=== PATIENT | female | born 1975 | race Caucasian/White ===

== ENCOUNTER 2017-07-28 19:18 | Emergency (ER) | payer BC ==
[2017-07-28] MEDS ORDERED: ONDANSETRON 4 MG/2 ML VIAL ONE (20:22)
[2017-07-28] MEDS ORDERED: NA CHLORIDE 0.9% 500 ML ONE (20:22)
[2017-07-28 20:39] LABS: Absolute Lymphocytes (CBC) 2.5 K/uL (0.7-4.9); Absolute Monocytes 1.3 K/uL (0.1-1.3); Basophils % 0.9 % (0-1.3); Eosinophils % 2.3 % (0-4.4); Hematocrit 39.3 % (36.0-45.0); Lymphocytes % 22.7 % (15.3-44.8); MCH 30.2 pg (27.0-35.0); MPV 9.3 fL (7.6-11.3); Monocytes % 11.6 % (3.3-12.3); RBC Red Blood Cell Count 4.41 M/uL (3.86-4.86)
[2017-07-28] MEDS ORDERED: PROMETHAZINE 25 MG/ML VIAL ONE (20:46)
[2017-07-28 20:57] LABS: Bicarbonate 28 mEq/L (21-31); Glucose Level 90 mg/dL (65-120); Lipase 35 U/L (22-51); Sodium Level 136 mEq/L (135-145)
[2017-07-28 21:00] LABS: ALT/SGPT 21 IU/L (10-60); AST/SGOT 18 IU/L (10-42); Albumin 4.1 g/dL (3.2-5.5); BUN Blood Urea Nitrogen 14 mg/dL (6-20); Bilirubin Total 0.4 mg/dL (0.3-1.2); Protein, Total 7.1 g/dL (6.0-8.3)
[2017-07-28 21:03] LABS: Alkaline Phosphatase 62 IU/L (42-121); Bilirubin Direct 0.1 mg/dL (0-0.2)
[2017-07-28 21:19] LABS: Urine Blood TRACE (NEG); Urine Glucose NEGATIVE (NEG); Urine Protein NEGATIVE (NEG); Urine Specific Gravity >1.030 (1.005-1.030); Urine pH 5.5 (5.0-7.0)
[2017-07-28 21:22] LABS: Urine Bacteria 20-50 /HPF (<20); Urine Culture Reflex Order REFLEXED; Urine RBC <5 /HPF (NONE SEEN)
[2017-07-29 00:09] LABS: Barbiturates NEGATIVE (NEGATIVE); Benzodiazepines NEGATIVE (NEGATIVE); Cocaine NEGATIVE (NEGATIVE); METHAMPHETAM NEGATIVE (NEGATIVE); Opiates NEGATIVE (NEGATIVE); Phencyclidine NEGATIVE (NEGATIVE); THC Cannibis NEGATIVE (NEGATIVE)
--- NOTE | 2017-07-29 00:18 | ER ---
Nurse's Notes [facility] Name: Jazzmine Amin Age: 41 yrs Sex: Female : 1975 Arrival Date: 07/28/2017 Time: 19:20 Bed 26 Private MD: Elba Pascual K Diagnosis: Viral Gastroenteritis Presentation: 07/28 19:48 Presenting complaint: Patient states: that she is having right lower abd pain that fc radiates around to back. Positive for nausea, vomiting and diarrhea. Started 1 week ago. Transition of care: patient was not received from another setting of care. Onset of symptoms was July 20, 2017. Risk Assessment: Do you want to hurt yourself or someone else? Patient reports no desire to harm self or others. Initial Sepsis Screen: Does the patient meet any 2 criteria? No. Patient's initial sepsis screen is negative. Does the patient have a suspected source of infection? No. Patient's initial sepsis screen is negative. Care prior to arrival: Medication(s) given: Pepto last at 1700. 19:48 Method Of Arrival: Ambulatory 19:48 Acuity: SANTO 3 Triage Assessment: 19:52 General: Appears uncomfortable, obese, Behavior is calm, cooperative, appropriate for age. Pain: Complains of pain in right lower quadrant Pain currently is 8 out of 10 on a pain scale. Quality of pain is described as aching, crampy, sharp, stabbing, Pain began 1 week ago Is continuous, Aggravated by eating, drinking. EENT: No deficits noted. Neuro: Level of Consciousness is awake, alert, obeys commands, Oriented to person, place, time, situation. Cardiovascular: No deficits noted. Respiratory: No deficits noted. GI: Reports lower abdominal pain, cramping, diarrhea, nausea, vomiting. : No deficits noted. Derm: Skin is pink, warm \T\ dry. Musculoskeletal: Circulation, motion, and sensation intact. Capillary refill < 3 seconds, Range of motion: intact in all extremities. 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 - Social history:: Smoking status: Patient uses tobacco products, smokes one pack cigarettes per day. Patient uses alcohol, occasionally. Patient/guardian denies using street drugs. - Ebola Screening: : Patient negative for fever greater than or equal to 101.5 degrees Fahrenheit, and additional compatible Ebola Virus Disease symptoms Patient denies exposure to infectious person Patient denies travel to an Ebola-affected area in the 21 days before illness onset. - Family history:: not pertinent. - Hospitalizations: : No recent hospitalization is reported. Screenin:08 Abuse screen: Denies threats or abuse. Nutritional screening: No deficits noted. jd3 Tuberculosis screening: No symptoms or risk factors identified. Fall Risk Ambulatory Aid- None/Bed Rest/Nurse Assist (0 pts). Gait- Normal/Bed Rest/Wheelchair (0 pts) Mental Status- Oriented to own ability (0 pts). Total Ziegler Fall Scale indicates No Risk (0-24 pts). Assessment: 20:04 General: Appears uncomfortable, Behavior is calm, cooperative, appropriate for age. jd3 Pain: Complains of pain in abdomen Pain radiates to posterior aspect of right lateral abdomen and anterior aspect of right lateral abdomen Pain currently is 8 out of 10 on a pain scale. Quality of pain is described as aching, sharp, Also complains of nausea. Neuro: Level of Consciousness is awake, alert, obeys commands, Oriented to person, place, time, situation. Cardiovascular: Heart tones S1 S2 present Capillary refill < 3 seconds Patient's skin is warm and dry. Respiratory: Airway is patent Respiratory effort is even, unlabored, Respiratory pattern is regular, symmetrical, Breath sounds are clear bilaterally. GI: Abdomen is round Bowel sounds present X 4 quads. Abd is soft Abdomen is tender to palpation X 4 quads. Reports diarrhea, nausea, vomiting. : No signs and/or symptoms were reported regarding the genitourinary system. EENT: No signs and/or symptoms were reported regarding the EENT system. Derm: Skin is intact, Skin is dry, Skin is normal, Skin temperature is warm. Musculoskeletal: Circulation, motion, and sensation intact. Range of motion: intact in all extremities. 21:28 Reassessment: Patient appears in no apparent distress at this time. Patient and/or jd3 family updated on plan of care and expected duration. Pain level reassessed. Patient is alert, oriented x 3, equal unlabored respirations, skin warm/dry/pink. 23:13 Reassessment: Patient appears in no apparent distress at this time. No changes from tl3 previously documented assessment. Patient and/or family updated on plan of care and expected duration. Pain level reassessed. Patient is alert, oriented x 3, equal unlabored respirations, skin warm/dry/pink. pt returned from CT, sleeping heavily but arrousable. 07/29 00:04 Reassessment: Patient appears in no apparent distress at this time. No changes from tl3 previously documented assessment. Patient and/or family updated on plan of care and expected duration. Pain level reassessed. Patient is alert, oriented x 3, equal unlabored respirations, skin warm/dry/pink. pt roused to give urine sample, ambulated to . Vital Signs: 07/28 19:54 BP 117 / 85; Pulse 89; Resp 20; Temp 98.9(O); Pulse Ox 97% on R/A; Weight 98.43 kg (R); Height 5 ft. 4 in. (162.56 cm) (R); Pain 8/10; 20:15 BP 113 / 78; Pulse 87; Resp 16 S; Pulse Ox 100% on R/A; jd3 21:27 BP 136 / 87; Pulse 83; Resp 17; Pulse Ox 98% on R/A; jd3 23:13 BP 107 / 74; Pulse 70; Resp 18; Pulse Ox 98% ; tl3 07/29 00:04 BP 112 / 76; Pulse 74; Resp 16; Pulse Ox 98% ; tl3 07/28 19:54 Body Mass Index 37.25 (98.43 kg, 162.56 cm) ED Course: 07/28 19:20 Patient arrived in ED. am2 19:20 Elba Pascual MD is Private Physician. am2 19:50 Triage completed. 19:52 Arm band placed on Patient placed in an exam room, on a stretcher. 20:04 Ernie Tovar RN is Primary Nurse. jd3 20:06 Edmond Phan MD is Attending Physician. rn 20:09 Patient has correct armband on for positive identification. Bed in low position. Call jd3 light in reach. Side rails up X 1. Adult w/ patient. 20:25 Inserted saline lock: 20 gauge in right antecubital area, using aseptic technique. jd3 Blood collected. 20:32 Oral contrast given. 21:01 Oral contrast reported to be complete. 22:[address] via wheelchair. 23:01 CT Abd/Pelvis - W/Contrast In Process Unspecified. EDMS 23:13 No provider procedures requiring assistance completed. tl3 23:34 Urine Dipstick--Ancillary (enter results) Sent. tl3 23:48 Urine Drug Screen Sent. tl3 Administered Medications: 20:26 Drug: NS 0.9% 500 ml Route: IV; Rate: bolus; Site: right antecubital; Delivery: Primary tl3 tubing; 20:27 Drug: Zofran 4 mg Route: IVP; Infused Over: 2 mins; Site: right antecubital; tl3 20:47 Drug: Phenergan 25 mg Route: IVP; Site: right antecubital; jd3 23:12 Follow up: Response: No adverse reaction tl3 Outcome: 07/29 00:17 Discharge ordered by . rn 00:47 Patient left the ED. tl3 Signatures: Dispatcher [employer] EDWI Leana Feldman RN RN fc Nieto, Roman, MD MD rn Warren, Shannon Mila [facility] Ernie Tovar RN RN jd3 Lowrey, Tammy, RN RN tl3
--- NOTE | 2017-07-29 00:18 | EDPHYS ---
Physician Documentation [facility] Name: Jazzmine Amin Age: 41 yrs Sex: Female : 1975 Arrival Date: 07/28/2017 Time: 19:20 Bed 26 Private MD: Elba Pascual K ED Physician Edmond Phan HPI: 07/28 21:26 This 41 yrs old Female presents to ER via Ambulatory with complaints of rn Abdominal Pain, Vomiting/Diarrhea. 21:26 The patient presents to the emergency department with nausea, vomiting, diarrhea, rn abdominal pain. Onset: The symptoms/episode began/occurred 1 week(s) ago. Possible causes: unknown. Associated signs and symptoms: Pertinent positives: abdominal pain, diarrhea, nausea, vomiting, Pertinent negatives: GI bleeding. Severity of symptoms: At their worst the symptoms were moderate in the emergency department the symptoms are unchanged. The patient has experienced a previous episode. The patient has not recently seen a physician. 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 - Social history:: Smoking status: Patient uses tobacco products, smokes one pack cigarettes per day. Patient uses alcohol, occasionally. Patient/guardian denies using street drugs. - Ebola Screening: : Patient negative for fever greater than or equal to 101.5 degrees Fahrenheit, and additional compatible Ebola Virus Disease symptoms Patient denies exposure to infectious person Patient denies travel to an Ebola-affected area in the 21 days before illness onset. - Family history:: not pertinent. - Hospitalizations: : No recent hospitalization is reported. ROS: 21:26 Constitutional: Negative for fever, chills, and weight loss, Eyes: Negative for injury, rn pain, redness, and discharge, Cardiovascular: Negative for chest pain, palpitations, and edema, Respiratory: Negative for shortness of breath, cough, wheezing, and pleuritic chest pain, Abdomen/GI: + abd pain/nausea/vomiting/diarrhea Back: Negative for injury and pain, MS/Extremity: Negative for injury and deformity, Skin: Negative for injury, rash, and discoloration, Neuro: Negative for headache, weakness, numbness, tingling, and seizure. Exam: 21:26 Constitutional: This is a well developed, well nourished patient who is awake, alert, rn and in no acute distress. Head/Face: Normocephalic, atraumatic. Eyes: Pupils equal round and reactive to light, extra-ocular motions intact. Lids and lashes normal. Conjunctiva and sclera are non-icteric and not injected. Cornea within normal limits. Periorbital areas with no swelling, redness, or edema. Respiratory: Normal respiratory effort Abdomen/GI: soft, mild RLQ and periumbilical tenderness, no rebound Skin: Warm, dry with normal turgor. Normal color with no rashes, no lesions, and no evidence of cellulitis. MS/ Extremity: Pulses equal, no cyanosis. Neurovascular intact. Full, normal range of motion. Equal circumference. Neuro: Awake and alert, GCS 15, oriented to person, place, time, and situation. Motor strength 5/5 in all extremities. Sensory grossly intact. Vital Signs: 19:54 BP 117 / 85; Pulse 89; Resp 20; Temp 98.9(O); Pulse Ox 97% on R/A; Weight 98.43 kg (R); fc Height 5 ft. 4 in. (162.56 cm) (R); Pain 8/10; 20:15 BP 113 / 78; Pulse 87; Resp 16 S; Pulse Ox 100% on R/A; jd3 21:27 BP 136 / 87; Pulse 83; Resp 17; Pulse Ox 98% on R/A; jd3 23:13 BP 107 / 74; Pulse 70; Resp 18; Pulse Ox 98% ; tl3 07/29 00:04 BP 112 / 76; Pulse 74; Resp 16; Pulse Ox 98% ; tl3 07/28 19:54 Body Mass Index 37.25 (98.43 kg, 162.56 cm) fc MDM: 07/28 20:06 Patient medically screened. rn 07/29 00:17 Differential diagnosis: Nonspecific abd pain, gastritis, pancreatitis, viral rn gastroenteritis, gastroenteritis. Data reviewed: vital signs, nurses notes, lab test result(s), radiologic studies, CT scan, and as a result, I will discharge patient. Counseling: I had a detailed discussion with the patient and/or guardian regarding: the historical points, exam findings, and any diagnostic results supporting the discharge/admit diagnosis, lab results, radiology results, the need for outpatient follow up, to return to the emergency department if symptoms worsen or persist or if there are any questions or concerns that arise at home. Response to treatment: the patient's symptoms have markedly improved after treatment, and as a result, I will discharge patient. Special discussion: Based on the patient's Hx, exam, and Dx evaluation, there is no indication for emergent surgery or inpatient Tx. It is understood by the patient/guardian that if the Sx's persist or worsen they need to return immediately for re-evaluation. I discussed with the patient/guardian in detail that at this point there is no indication for admission to the hospital. It is understood, however, that if the symptoms persist or worsen the patient needs to return immediately for re-evaluation. 07/28 20:15 Order name: Basic Metabolic Panel; Complete Time: 21:15 07/28 20:15 Order name: CBC with Diff; Complete Time: 21:15 07/28 20:15 Order name: Hepatic Function; Complete Time: 21:15 07/28 20:15 Order name: Lipase; Complete Time: 21:15 07/28 20:15 Order name: Urine Microscopic Only; Complete Time: 23:02 07/28 20:41 Order name: Urine Dipstick--Ancillary (enter results) [facility] 07/28 20:15 Order name: CT Abd/Pelvis - W/Contrast 07/28 20:41 Order name: Urine --Ancillary (enter results); Complete Time: 23:02 [facility] 07/28 20:41 Order name: Urine Dipstick-Ancillary; Complete Time: 23:02 [facility] 07/28 21:24 Order name: Urine Culture [facility] 07/28 23:02 Order name: Urine Drug Screen 07/28 23:03 Order name: Urine Drug Screen; Complete Time: 00:16 [facility] 07/28 20:15 Order name: Urine Test (obtain specimen); Complete Time: 20:41 07/28 20:15 Order name: IV Saline Lock; Complete Time: 20:29 rn 07/28 20:15 Order name: Labs collected and sent; Complete Time: 20:29 rn 07/28 20:15 Order name: Urine Dipstick-Ancillary (obtain specimen); Complete Time: 20:41 rn Administered Medications: 07/28 20:26 Drug: NS 0.9% 500 ml Route: IV; Rate: bolus; Site: right antecubital; Delivery: Primary tl3 tubing; 20:27 Drug: Zofran 4 mg Route: IVP; Infused Over: 2 mins; Site: right antecubital; tl3 20:47 Drug: Phenergan 25 mg Route: IVP; Site: right antecubital; jd3 23:12 Follow up: Response: No adverse reaction tl3 Disposition: 07/29/17 00:17 Discharged to Home. Impression: Viral Gastroenteritis. - Condition is Stable. - Discharge Instructions: Viral Gastroenteritis. - Prescriptions for Zofran ODT 4 mg Oral tablet,disintegrating - place 1 tablet by TRANSLINGUAL route every 8-10 hours As needed; 20 tablet. - Medication Reconciliation Form, Thank You Letter, Antibiotic Education, Prescription Opioid Use form. - Follow up: Private Physician; When: As needed; Reason: Recheck today's complaints, Re-evaluation by your physician. - Problem is new. - Symptoms have improved. Signatures: Dispatcher [employer] EDMS Leana Feldman RN RN fc Nieto, Roman, MD MD rn Davies, Jonathon, RN RN jd3 Lowrey, Tammy, RN RN tl3 Corrections: (The following items were deleted from the chart) 07/29 00:47 00:17 07/29/2017 00:17 Discharged to Home. Impression: Viral Gastroenteritis. Condition tl3 is Stable. Forms are Medication Reconciliation Form, Thank You Letter, Antibiotic Education, Prescription Opioid Use. Follow up: Private Physician; When: As needed; Reason: Recheck today's complaints, Re-evaluation by your physician. Problem is new. Symptoms have improved. rn
[2017-07-29 01:34] VITALS: TEMP 98.9
[2017-07-29 01:43] VITALS: O2SAT 98
[2017-07-29 01:55] VITALS: BP 112/76
--- NOTE | 2017-07-29 10:44 | RAD REPORT ---
EXAM DESCRIPTION: CTAbdomen Pelvis W Contrast - 07/29/2017 4:22 am CLINICAL HISTORY: Abdominal pain. COMPARISON: 10/30/2015, 09/30/2008 TECHNIQUE: Biphasic CT imaging of the abdomen and pelvis was performed with 100 ml non-ionic IV cont rast. All CT scans are performed using dose optimization technique as appropriate and may include automated exposure control or mA/KV adjustment according to patient size. FINDINGS: The lung bases are clear. The liver, spleen, pancreas, adrenal glands and kidneys are within normal limits. No bowel obstruction, free air, free fluid or abscess. The appendix is normal. No evidence of signi ficant lymphadenopathy. No suspicious bony findings. IMPRESSION: No acute intra-abdominal or pelvic finding.
== END 2017-07-29 00:47 | disposition home or self-care (01) ==
LOC: ER 19:18
DX: A08.4 Viral intestinal infection, unspecified (principal); F90.9 Attention-deficit hyperactivity disorder, unspecified type; F17.210 Nicotine dependence, cigarettes, uncomplicated
CPT/HCPCS: 36415; 74177; 80048; 80076; 80307; 81003; 81015; 81025; 83690; 85025; 87086; 87088; 96374; 96375; 99284; J2405; J2550; Q9967

== ENCOUNTER 2017-12-05 19:44 | Emergency (ER) | payer BC ==
[2017-12-05] MEDS ORDERED: LIDOCAINE 1% W/EPI 1:100,000 MDV 50 ML VIAL ONE (20:37)
[2017-12-05] MEDS ORDERED: SMZ./TMP. 800/160 MG TABLET ONE (20:48)
[2017-12-05] MEDS ORDERED: DOXYCYCLINE 100 MG CAP PO ONE (20:48)
--- NOTE | 2017-12-05 21:26 | EDPHYS ---
Physician Documentation [facility] Name: Jazzmine Amin Age: 42 yrs Sex: Female : 1975 Arrival Date: 12/05/2017 Time: 19:47 Bed 18 Private MD: Elba Pascual K ED Physician Otilio Wade HPI: 12/05 20:27 This 42 yrs old Female presents to ER via Ambulatory with complaints of KNEE maksim SWOLLEN,ANKLE PAIN. 20:27 The patient presents with pain, swelling, tenderness. The complaints affect the left maksim knee. Context: The problem was sustained at an unknown site, resulted from an unknown cause. Onset: The symptoms/episode began/occurred 3 day(s) ago. Modifying factors: The symptoms are alleviated by remaining still, the symptoms are aggravated by movement, bending knee. Associated signs and symptoms: The patient has no apparent associated signs or symptoms. Severity of symptoms: At their worst the symptoms were mild, moderate, in the emergency department the symptoms are unchanged. The patient has not experienced similar symptoms in the past. 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 - Social history:: Smoking status: Patient uses tobacco products, smokes one-half pack cigarettes per day, Patient/guardian denies using alcohol, street drugs. - Ebola Screening: : No symptoms or risks identified at this time. - Family history:: not pertinent. ROS: 20:27 Constitutional: Negative for fever, chills, and weight loss, Eyes: Negative for injury, maksim pain, redness, and discharge, ENT: Negative for injury, pain, and discharge, Neck: Negative for injury, pain, and swelling, Cardiovascular: Negative for chest pain, palpitations, and edema, Respiratory: Negative for shortness of breath, cough, wheezing, and pleuritic chest pain, Abdomen/GI: Negative for abdominal pain, nausea, vomiting, diarrhea, and constipation, Back: Negative for injury and pain, : Negative for injury, bleeding, discharge, and swelling, Neuro: Negative for headache, weakness, numbness, tingling, and seizure, Psych: Negative for depression, anxiety, suicide ideation, homicidal ideation, and hallucinations, Allergy/Immunology: Negative for hives, rash, and allergies, Endocrine: Negative for neck swelling, polydipsia, polyuria, polyphagia, and marked weight changes, Hematologic/Lymphatic: Negative for swollen nodes, abnormal bleeding, and unusual bruising. 20:27 MS/extremity: Positive for decreased range of motion, pain, swelling, tenderness, of the left knee. Exam: 20:27 Constitutional: This is a well developed, well nourished patient who is awake, alert, maksim and in no acute distress. Head/Face: Normocephalic, atraumatic. Eyes: Pupils equal round and reactive to light, extra-ocular motions intact. Lids and lashes normal. Conjunctiva and sclera are non-icteric and not injected. Cornea within normal limits. Periorbital areas with no swelling, redness, or edema. ENT: Nares patent. No nasal discharge, no septal abnormalities noted. Tympanic membranes are normal and external auditory canals are clear. Oropharynx with no redness, swelling, or masses, exudates, or evidence of obstruction, uvula midline. Mucous membranes moist. Neck: Trachea midline, no thyromegaly or masses palpated, and no cervical lymphadenopathy. Supple, full range of motion without nuchal rigidity, or vertebral point tenderness. No Meningismus. Chest/axilla: Normal chest wall appearance and motion. Nontender with no deformity. No lesions are appreciated. Cardiovascular: Regular rate and rhythm with a normal S1 and S2. No gallops, murmurs, or rubs. Normal PMI, no JVD. No pulse deficits. Respiratory: Lungs have equal breath sounds bilaterally, clear to auscultation and percussion. No rales, rhonchi or wheezes noted. No increased work of breathing, no retractions or nasal flaring. Abdomen/GI: Soft, non-tender, with normal bowel sounds. No distension or tympany. No guarding or rebound. No evidence of tenderness throughout. Back: No spinal tenderness. No costovertebral tenderness. Full range of motion. Female : Normal external genitalia. Neuro: Awake and alert, GCS 15, oriented to person, place, time, and situation. Cranial nerves II-XII grossly intact. Motor strength 5/5 in all extremities. Sensory grossly intact. Cerebellar exam normal. Normal gait. Psych: Awake, alert, with orientation to person, place and time. Behavior, mood, and affect are within normal limits. 20:27 Musculoskeletal/extremity: ROM: no acute changes, Circulation is intact in all extremities. DVT Exam: No signs of deep vein thrombosis. negative Homans' sign noted on exam, no appreciated bluish discoloration, no erythema, no increased warmth, pain, swelling, tenderness, local to the left patellar insertion site. Vital Signs: 20:24 BP 135 / 78; Pulse 88; Resp 18 S; Temp 98.2(O); Pulse Ox 96% on R/A; Weight 108.86 kg bb (R); Height 5 ft. 4 in. (162.56 cm) (R); Pain 8/10; 21:15 BP 128 / 87; Pulse 78; Resp 16; Pulse Ox 96% on R/A; jb4 20:24 Body Mass Index 41.20 (108.86 kg, 162.56 cm) bb Procedures: 21:23 I \T\ D: Incision and drainage was performed for an abscess of the left Prepped with [facility] Betadine, Anesthetized with 6 ml's 1% Lidocaine w/ Epi. Incised with #11 blade. Drained moderate amount serosanguinous fluid. synovial fluid, thick, slightly purlent Packed with iodoform gauze, Dressing: sterile 4x4 gauze, non-Adherent dressing, the patient tolerated the procedure well. MDM: 20:13 Patient medically screened. [facility] 20:27 Data reviewed: vital signs, nurses notes, lab test result(s), radiologic studies. [facility] 12/05 20: Order name: Wound Culture [facility] 12/05 20: Order name: Knee Left 3 View XRAY [facility] 12/05 20:27 Order name: Dressing - Wound; Complete Time: 20:32 [facility] 12/05 20: Order name: Gloves, Sterile; Complete Time: 20:32 [facility] 12/05 20:27 Order name: Setup Suture Tray; Complete Time: 20:32 [facility] 12/05 20: Order name: Crutches; Complete Time: 21:00 [facility] 12/05 21:26 Order name: Wound dressing; Complete Time: 21:56 [facility] Administered Medications: 20:51 Drug: Bactrim (160 mg-800 mg (DS) 1 tablet Route: PO; jb4 21:15 Follow up: Response: No adverse reaction jb4 20:51 Drug: Doxycycline 200 mg Route: PO; jb4 21:15 Follow up: Response: No adverse reaction jb4 21:00 Drug: Lidocaine-Epinephrine -1%: (1:100,000) 10 ml Volume: 20 ml; Route: Infiltration; jb4 21:15 Follow up: Response: No adverse reaction jb4 21:55 Drug: [place] 10 mg-325 mg 1 tabs Route: PO; jb4 22:15 Follow up: Response: No adverse reaction; Pain is decreased jb4 Disposition: 12/05/17 21:26 Discharged to Home. Impression: Cutaneous abscess of limb, Other bursitis of knee, left knee - early suppurative. - Condition is Stable. - Discharge Instructions: Skin Abscess, Incision and Drainage, Skin Abscess, Fcba-in-Hloa, Incision Care, Adult, Incision Care, [id number]. - Prescriptions for Tylenol- Codeine #3 300-30 mg Oral Tablet - take 2 tablets by ORAL route every 6 hours As needed; 24 tablet. Doxycycline Hyclate 100 mg Oral Tablet - take 1 tablet by ORAL route every 12 hours; 20 tablet. Bactrim DS 800- 160 mg Oral Tablet - take 1 tablet by ORAL route every 12 hours for 10 days; 20 tablet. - Medication Reconciliation Form, Thank You Letter, Antibiotic Education, Prescription Opioid Use, Work release form form. - Follow up: Elba Pascual; When: 2 - 3 days; Reason: Recheck today's complaints, Continuance of care, Re-evaluation by your physician. Follow up: Jenaro Berkowitz; When: 2 - 3 days; Reason: Recheck today's complaints, Re-evaluation by your physician. - Problem is new. - Symptoms have improved. Signatures: Dispatcher [employer] Otilio De Anda MD MD cha Ballard, Brenda, MARBELLA RN Remigio Whaley RN RN jb4 Corrections: (The following items were deleted from the chart) 21:56 21:26 12/05/2017 21:26 Discharged to Home. Impression: Cutaneous abscess of limb; Other jb4 bursitis of knee, left knee - early suppurative. Condition is Stable. Discharge Instructions: Skin Abscess, Incision and Drainage, Skin Abscess, [id number], Incision Care, Adult, Incision Care, [id number]. Prescriptions for Tylenol-Codeine #3 300-30 mg Oral Tablet - take 2 tablets by ORAL route every 6 hours As needed; 24 tablet, Doxycycline Hyclate 100 mg Oral Tablet - take 1 tablet by ORAL route every 12 hours; 20 tablet, Bactrim DS 800-160 mg Oral Tablet - take 1 tablet by ORAL route every 12 hours for 10 days; 20 tablet. and Forms are Medication Reconciliation Form, Thank You Letter, Antibiotic Education, Prescription Opioid Use. Follow up: Elba Pascual; When: 2 - 3 days; Reason: Recheck today's complaints, Continuance of care, Re-evaluation by your physician. Follow up: Jenaro Berkowitz; When: 2 - 3 days; Reason: Recheck today's complaints, Re-evaluation by your physician. Problem is new. Symptoms have improved. maksim
--- NOTE | 2017-12-05 21:26 | ER ---
Nurse's Notes [facility] Name: Jazzmine Amin Age: 42 yrs Sex: Female : 1975 Arrival Date: 12/05/2017 Time: 19:47 Bed 18 Private MD: Elba Pascual K Diagnosis: Cutaneous abscess of limb;Other bursitis of knee, left knee-early suppurative Presentation: 12/05 20:22 Presenting complaint: Patient states: she is having left knee pain x 1 week denies bb trauma states pain is getting worse and it is getting more swollen. Transition of care: patient was not received from another setting of care. Onset of symptoms was November 28, 2017. Risk Assessment: Do you want to hurt yourself or someone else? Patient reports no desire to harm self or others. Initial Sepsis Screen: Does the patient meet any 2 criteria? No. Patient's initial sepsis screen is negative. Does the patient have a suspected source of infection? No. Patient's initial sepsis screen is negative. Care prior to arrival: None. 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 - Social history:: Smoking status: Patient uses tobacco products, smokes one-half pack cigarettes per day, Patient/guardian denies using alcohol, street drugs. - Ebola Screening: : No symptoms or risks identified at this time. - Family history:: not pertinent. Screenin:20 Abuse screen: Denies threats or abuse. Nutritional screening: No deficits noted. jb4 Tuberculosis screening: No symptoms or risk factors identified. Fall Risk None identified. Assessment: 20:20 General: Appears in no apparent distress. uncomfortable, Behavior is calm, cooperative. jb4 Pain: Complains of pain in left hoyos Pain radiates to the left ankle. Pain currently is 10 out of 10 on a pain scale. Quality of pain is described as sharp, Pain began 1 day ago. Is continuous. Neuro: Level of Consciousness is awake, alert, obeys commands, Oriented to person, place, time, situation. Cardiovascular: Patient's skin is warm and dry. Respiratory: Airway is patent Respiratory effort is even, unlabored, Respiratory pattern is regular, symmetrical. GI: No signs and/or symptoms were reported involving the gastrointestinal system. : No signs and/or symptoms were reported regarding the genitourinary system. EENT: No signs and/or symptoms were reported regarding the EENT system. Derm: Skin is intact, Skin is pink, warm \T\ dry. Abscess located on left hoyos is golf ball sized, has no drainage, is raised. Musculoskeletal: Circulation, motion, and sensation intact. 21:15 Reassessment: Patient appears in no apparent distress at this time. Patient and/or jb4 family updated on plan of care and expected duration. Pain level reassessed. Patient is alert, oriented x 3, equal unlabored respirations, skin warm/dry/pink. Vital Signs: 20:24 BP 135 / 78; Pulse 88; Resp 18 S; Temp 98.2(O); Pulse Ox 96% on R/A; Weight 108.86 kg bb (R); Height 5 ft. 4 in. (162.56 cm) (R); Pain 8/10; 21:15 BP 128 / 87; Pulse 78; Resp 16; Pulse Ox 96% on R/A; jb4 20:24 Body Mass Index 41.20 (108.86 kg, 162.56 cm) ED Course: 19:47 Patient arrived in ED. es 19:48 Elba Pascual MD is Private Physician. es 20:13 Otilio Wade MD is Attending Physician. maksim 20:20 Patient has correct armband on for positive identification. Bed in low position. Call jb4 light in reach. Side rails up X 1. Pulse ox on. NIBP on. 20:23 Triage completed. bb 20:24 Arm band placed on Patient placed in an exam room, on a stretcher, on pulse oximetry. bb Family accompanied patient. 20:28 Remigio Weinberg RN is Primary Nurse. jb4 21:00 Assist provider with I \T\ D: of an abscess on left hoyos. Set up I\T\D tray. Performed by ramo 4 Otilio Wade MD Culture sent to lab. Wound packed. iodoform gauze, Dressing with Neosporin and ABD pad, 4X4s, Patient tolerated well. 21:13 Knee Left 3 View XRAY In Process Unspecified. EDMS 21:15 Patient did not have IV access during this emergency room visit. jb4 21:25 Elba Pascual MD is Referral Physician. maksim 21:25 Jenaro Berkowitz MD is Referral Physician. [facility] Administered Medications: 20:51 Drug: Bactrim (160 mg-800 mg (DS) 1 tablet Route: PO; jb4 21:15 Follow up: Response: No adverse reaction jb4 20:51 Drug: Doxycycline 200 mg Route: PO; jb4 21:15 Follow up: Response: No adverse reaction jb4 21:00 Drug: Lidocaine-Epinephrine -1%: (1:100,000) 10 ml Volume: 20 ml; Route: Infiltration; jb4 21:15 Follow up: Response: No adverse reaction jb4 21:55 Drug: [place] 10 mg-325 mg 1 tabs Route: PO; jb4 22:15 Follow up: Response: No adverse reaction; Pain is decreased jb4 Outcome: 21:26 Discharge ordered by . maksim 21:40 Discharged to home ambulatory. jb4 21:40 Condition: stable 21:40 Discharge instructions given to patient, family, Instructed on discharge instructions, follow up and referral plans. medication usage, crutch walking, wound care, Demonstrated understanding of instructions, follow-up care, medications, wound care, crutch walking, Prescriptions given X 3. 21:56 Patient left the ED. jb4 Signatures: Dispatcher [employer] Otilio De Anda MD MD cha Salyer, Edna es Ballard, Brenda, RN RN Remigio Whaley RN RN jb4
--- NOTE | 2017-12-05 21:27 | RAD REPORT ---
EXAM DESCRIPTION: RAD - Knee Left 3 View - 12/05/2017 9:12 pm CLINICAL HISTORY: Left knee pain FINDINGS: No fracture or dislocation is seen. No bone or joint abnormality is seen
[2017-12-05] MEDS ORDERED: HYDROCODONE/APAP 10/325 TAB ONE (21:49)
[2017-12-05 22:49] VITALS: BP 135/78; TEMP 98.2; O2SAT 96
== END 2017-12-05 21:56 | disposition home or self-care (01) ==
LOC: ER 19:44
PROC: 0J9P0ZZ Drainage of Left Lower Leg Subcutaneous Tissue and Fascia, Open Approach (ICD-10-PCS; principal; 2017-12-05)
DX: M71.562 Other bursitis, not elsewhere classified, left knee (principal); L02.416 Cutaneous abscess of left lower limb; F17.210 Nicotine dependence, cigarettes, uncomplicated; F90.9 Attention-deficit hyperactivity disorder, unspecified type; Z88.8 Allergy status to other drugs, medicaments and biological substances
CPT/HCPCS: 87070; 87205; 99284

== ENCOUNTER 2018-05-23 15:15 | Emergency (ER) | payer BC ==
[2018-05-23 20:17] LABS: Urine Blood 2+ (NEG); Urine Glucose NEGATIVE (NEG); Urine Protein 1+ (NEG); Urine Specific Gravity >1.030 (1.005-1.030); Urine pH 5.5 (5.0-7.0)
[2018-05-23 20:18] LABS: Urine Bacteria >50 /HPF (<20)
[2018-05-23 20:19] LABS: Urine Culture Reflex Order NOT NEEDED
--- NOTE | 2018-05-23 20:58 | EDPHYS ---
Physician Documentation [facility] Name: Jazzmine Amin Age: 42 yrs Sex: Female : 1975 Arrival Date: 05/23/2018 Time: 15:20 Bed Treatment Private MD: Elba Pascual K ED Physician Yao Anderson HPI: 05/23 21:00 This 42 yrs old Female presents to ER via Ambulatory with complaints of Back snw Pain. 21:00 The patient presents with pain that is acute, with no known mechanism of injury. The snw symptoms are located in the low back. Onset: The symptoms/episode began/occurred suddenly, 3 day(s) ago. The pain radiates to the right mid back. Associated signs and symptoms: Pertinent positives: fatigue, malaise, dysuria, Pertinent negatives: fever. The problem was sustained from unknown cause. Severity of symptoms: At their worst the symptoms were moderate, severe. It is unknown whether or not the patient has had similar symptoms in the past. The patient has not recently seen a physician, the patient's primary care provider is Dr. Dr. Pascual. 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 - Social history:: Smoking status: Patient uses tobacco products, smokes one-half pack cigarettes per day. - Ebola Screening: : No symptoms or risks identified at this time. ROS: 20:59 Constitutional: Negative for fever, chills, and weight loss, Eyes: Negative for injury, snw pain, redness, and discharge, ENT: Negative for injury, pain, and discharge, Neck: Negative for injury, pain, and swelling, Cardiovascular: Negative for chest pain, palpitations, and edema, Respiratory: Negative for shortness of breath, cough, wheezing, and pleuritic chest pain, Abdomen/GI: Negative for abdominal pain, nausea, vomiting, diarrhea, and constipation. 20:59 MS/Extremity: Negative for injury and deformity, Skin: Negative for injury, rash, and discoloration, Neuro: Negative for headache, weakness, numbness, tingling, and seizure. 20:59 Back: Positive for flank pain, on the right. 20:59 : Positive for urinary symptoms, small amounts, burning with urination. Exam: 20:59 Constitutional: This is a well developed, well nourished patient who is awake, alert, snw and in no acute distress. Head/Face: Normocephalic, atraumatic. Eyes: Pupils equal round and reactive to light, extra-ocular motions intact. Lids and lashes normal. Conjunctiva and sclera are non-icteric and not injected. Cornea within normal limits. Periorbital areas with no swelling, redness, or edema. ENT: Nares patent. No nasal discharge, no septal abnormalities noted. Tympanic membranes are normal and external auditory canals are clear. Oropharynx with no redness, swelling, or masses, exudates, or evidence of obstruction, uvula midline. Mucous membranes moist. Neck: Trachea midline, no thyromegaly or masses palpated, and no cervical lymphadenopathy. Supple, full range of motion without nuchal rigidity, or vertebral point tenderness. No Meningismus. Chest/axilla: Normal chest wall appearance and motion. Nontender with no deformity. No lesions are appreciated. Cardiovascular: Regular rate and rhythm with a normal S1 and S2. No gallops, murmurs, or rubs. Normal PMI, no JVD. No pulse deficits. Respiratory: Lungs have equal breath sounds bilaterally, clear to auscultation and percussion. No rales, rhonchi or wheezes noted. No increased work of breathing, no retractions or nasal flaring. Abdomen/GI: Soft, non-tender, with normal bowel sounds. No distension or tympany. No guarding or rebound. No evidence of tenderness throughout. Back: No spinal tenderness. No costovertebral tenderness. Full range of motion. Skin: Warm, dry with normal turgor. Normal color with no rashes, no lesions, and no evidence of cellulitis. MS/ Extremity: Pulses equal, no cyanosis. Neurovascular intact. Full, normal range of motion. Neuro: Awake and alert, GCS 15, oriented to person, place, time, and situation. Cranial nerves II-XII grossly intact. Motor strength 5/5 in all extremities. Sensory grossly intact. Cerebellar exam normal. Normal gait. Vital Signs: 15:49 BP 132 / 91; Pulse 75; Resp 16 S; Temp 97.2(TE); Pulse Ox 100% on R/A; Weight 99.79 kg aa5 (R); Height 5 ft. 4 in. (162.56 cm) (R); Pain 7/10; 22:11 BP 128 / 88; Pulse 88; Resp 20; Temp 98.0; Pulse Ox 97% on R/A; Pain 4/10; fc 15:49 Body Mass Index 37.76 (99.79 kg, 162.56 cm) aa5 MDM: 20:21 Patient medically screened. cp 21:00 Data reviewed: vital signs, nurses notes. Data interpreted: Pulse oximetry: on room air snw is 100 %. Interpretation: normal. Counseling: I had a detailed discussion with the patient and/or guardian regarding: the historical points, exam findings, and any diagnostic results supporting the discharge/admit diagnosis, the presence of at least one elevated blood pressure reading (>120/80) during this emergency department visit, lab results, the need for outpatient follow up, to return to the emergency department if symptoms worsen or persist or if there are any questions or concerns that arise at home. Special discussion: I have referred the patient to see his PCP for further evaluation of high blood pressure. Based on the history and exam findings, there is no indication for further emergent testing or inpatient evaluation. I discussed with the patient/guardian the need to see the primary care provider for further evaluation of the symptoms. 05/23 17:53 Order name: Urine Culture [facility] 05/23 17:53 Order name: Urine Microscopic Only; Complete Time: 20:31 snw 05/23 19:57 Order name: Urine Dipstick--Ancillary (enter results) [facility] 05/23 19:57 Order name: Urine --Ancillary (enter results) [facility] 05/23 17:53 Order name: Urine Test (obtain specimen); Complete Time: 21:05 snw 05/23 17:53 Order name: Urine Dipstick-Ancillary (obtain specimen); Complete Time: 21:05 snw Administered Medications: 21:16 Drug: Rocephin (cefTRIAXone) 1 grams Route: IM; Site: left gluteus; 22:08 Follow up: Response: No adverse reaction; No change in condition 21:16 Drug: fentaNYL (PF) 50 mcg Route: IM; Site: left gluteus; fc 22:08 Follow up: Response: No adverse reaction; Pain is decreased fc Disposition: 05/24 08:55 Co-signature as Attending Physician, Yao Anderson MD I agree with the assessment and vt plan of care. Disposition: 05/23/18 20:57 Discharged to Home. Impression: Urinary tract infection, site not specified. - Condition is Stable. - Discharge Instructions: Back Pain, Adult, Flank Pain, Adult, Hypertension, Urinary Tract Infection, Adult, Rehydration, Adult. - Prescriptions for cefpodoxime 100 mg Oral Tablet - take 1 tablet by ORAL route every 12 hours for 10 days take with food; 20 tablet. promethazine 25 mg Oral Tablet - take 1 tablet by ORAL route every 6 hours As needed; 20 tablet. - Work release form, Medication Reconciliation Form, Thank You Letter, Antibiotic Education, Prescription Opioid Use, Family Work Release form. - Follow up: Elba Pascual MD; When: 2 - 3 days; Reason: Recheck today's complaints, Continuance of care, Re-evaluation by your physician. Follow up: Emergency Department; When: As needed; Reason: Worsening of condition. Signatures: Dispatcher [employer] EDMS Casi Mohr, KELLENC FIRE EQUIPMENT REPAIRER INSPECTOR-Csnw Leana Feldman RN RN Katarina Palomino RN RN aa5 Otilio Benson PA PA Yao Lopez MD MD wa Corrections: (The following items were deleted from the chart) 05/23 22:11 20:57 05/23/2018 20:57 Discharged to Home. Impression: Urinary tract infection, site fc not specified. Condition is Stable. Forms are Medication Reconciliation Form, Thank You Letter, Antibiotic Education, Prescription Opioid Use. Follow up: Elba Pascual; When: 2 - 3 days; Reason: Recheck today's complaints, Continuance of care, Re-evaluation by your physician. Follow up: Emergency Department; When: As needed; Reason: Worsening of condition. snw
--- NOTE | 2018-05-23 20:58 | ER ---
Nurse's Notes [facility] Name: Jazzmine Amin Age: 42 yrs Sex: Female : 1975 Arrival Date: 05/23/2018 Time: 15:20 Bed Treatment Private MD: Elba Pascual K Diagnosis: Urinary tract infection, site not specified Presentation: 05/23 15:47 Presenting complaint: Patient states: right lower back pain that began 2-3 days ago. Pt aa5 also reports burning with urination and frequency. Transition of care: patient was not received from another setting of care. Onset of symptoms was May 2018. Risk Assessment: Do you want to hurt yourself or someone else? Patient reports no desire to harm self or others. Initial Sepsis Screen: Does the patient meet any 2 criteria? No. Patient's initial sepsis screen is negative. Does the patient have a suspected source of infection? No. Patient's initial sepsis screen is negative. Care prior to arrival: None. 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 - Social history:: Smoking status: Patient uses tobacco products, smokes one-half pack cigarettes per day. - Ebola Screening: : No symptoms or risks identified at this time. Screenin:03 Abuse screen: Denies threats or abuse. Nutritional screening: No deficits noted. fc Tuberculosis screening: No symptoms or risk factors identified. Fall Risk None identified. Assessment: 20:50 General: Appears distressed, uncomfortable, obese, Behavior is calm, cooperative, fc appropriate for age. Pain: Complains of pain in right mid back Pain currently is 8 out of 10 on a pain scale. Quality of pain is described as aching, pressure, throbbing, Pain began 2-3 days ago. Is continuous. Neuro: Level of Consciousness is awake, alert, obeys commands, Oriented to person, place, time, situation, Appropriate for age. Cardiovascular: No deficits noted. Respiratory: Airway is patent Respiratory effort is even, unlabored, Respiratory pattern is regular, symmetrical. GI: No deficits noted. : Reports burning with urination, pain in right in lower back with urination, urgency, urinary frequency. EENT: No deficits noted. Derm: Skin is pink, warm \T\ dry. Musculoskeletal: Circulation, motion, and sensation intact. Capillary refill < 3 seconds, Range of motion: intact in all extremities. 20:51 Reassessment: Casi TUNE UP MECHANIC in to see and examine pt. fc 21:23 Reassessment: Pt is awaiting shot time and discharge. fc 22:07 Reassessment: No changes from previously documented assessment. Patient and/or family fc updated on plan of care and expected duration. Pain level reassessed. Patient is alert, oriented x 3, equal unlabored respirations, skin warm/dry/pink. Pt states that she is feeling better. Vital Signs: 15:49 BP 132 / 91; Pulse 75; Resp 16 S; Temp 97.2(TE); Pulse Ox 100% on R/A; Weight 99.79 kg aa5 (R); Height 5 ft. 4 in. (162.56 cm) (R); Pain 7/10; 22:11 BP 128 / 88; Pulse 88; Resp 20; Temp 98.0; Pulse Ox 97% on R/A; Pain 4/10; fc 15:49 Body Mass Index 37.76 (99.79 kg, 162.56 cm) aa5 ED Course: 15:20 Patient arrived in ED. mr 15:20 Elba Pascual MD is Private Physician. mr 15:48 Triage completed. aa5 15:48 Arm band placed on. aa5 18:11 Casi Mohr FNP-C is PHCP. snw 18:11 Edmond Phan MD is Attending Physician. snw 20:00 Patient's name was called from ER lobby. No response. fc 20:21 Otilio Benson PA is PHCP. cp 20:21 Yao Anderson MD is Attending Physician. cp 20:22 Patient's name was called from ER lobby. No response. fc 20:53 Casi Mohr FNP-C is PHCP. snw 20:53 Yao Anderson MD is Attending Physician. snw 20:57 Elba Pascual MD is Referral Physician. snw 21:03 Patient has correct armband on for positive identification. Bed in low position. Call fc light in reach. 21:03 No provider procedures requiring assistance completed. Patient did not have IV access fc during this emergency room visit. Administered Medications: 21:16 Drug: Rocephin (cefTRIAXone) 1 grams Route: IM; Site: left gluteus; 22:08 Follow up: Response: No adverse reaction; No change in condition fc 21:16 Drug: fentaNYL (PF) 50 mcg Route: IM; Site: left gluteus; 22:08 Follow up: Response: No adverse reaction; Pain is decreased fc Outcome: 20:57 Discharge ordered by . snw 22:08 Discharged to home via wheelchair, with family. fc 22:08 Condition: good 22:08 Discharge instructions given to patient, family, Instructed on discharge instructions, follow up and referral plans. no drinking with medication, no driving heavy equipment, medication usage, Demonstrated understanding of instructions, follow-up care, medications, Prescriptions given X 2. 22:11 Patient left the ED. fc Signatures: Casi Mohr, VETERINARY SURGERY TECHNICIAN-C VETERINARY SURGERY TECHNICIAN-Csnw Zayra Reina mr GastonLeana, RN RN Katarina Palomino RN RN aa5 Otilio Benson PA PA cp
[2018-05-23] MEDS ORDERED: FENTANYL CITR 100 MCG/2 ML ONE (21:18)
[2018-05-23] MEDS ORDERED: LIDOCAINE 1% MPF 2 ML AMPULE ONE (21:19)
[2018-05-23] MEDS ORDERED: CEFTRIAXONE 1000 MG/VIAL ONE (21:19)
[2018-05-23 23:05] VITALS: BP 128/88; TEMP 98; O2SAT 97
== END 2018-05-23 22:11 | disposition home or self-care (01) ==
LOC: ER 15:15
DX: N39.0 Urinary tract infection, site not specified (principal); F90.9 Attention-deficit hyperactivity disorder, unspecified type; F17.210 Nicotine dependence, cigarettes, uncomplicated
CPT/HCPCS: 81003; 81015; 81025; 87077; 87086; 87088; 87186; 96372; 99283; J2001; J3010

== ENCOUNTER 2018-06-18 14:17 | Emergency (ER) | payer BC ==
--- NOTE | 2018-06-18 16:14 | RAD REPORT ---
EXAM DESCRIPTION: CT - Thorax Wo Con - 06/18/2018 4:00 pm CLINICAL HISTORY: Right-sided chest and shoulder pain, history of fall several days earlier COMPARISON: None. TECHNIQUE: Axial 5 mm thick images of the chest were obtained without IV contrast. All CT scans are performed using dose optimization technique as appropriate and may include automated exposure control or mA/KV adjustment according to patient size. FINDINGS: No mass or infiltrate in the lung parenchyma. No pleural effusion. No pneumothorax or pulm onary contusion. No abnormal mediastinal or hilar masses or lymphadenopathy seen. No gross aortic or pulmonary artery finding suspected. Assessment is limited in the absence of IV contrast. No pericardial thickening or effusion. No axillary lymphadenopathy or soft tissue mass of the chest wall. There is no dislocation of the right humeral head and no evidence for proximal humerus fracture. AC j oint is intact. Scapula is intact. There is a very small portion of the right clavicle and acromion t hat are cut off the field of view. Likelihood of abnormality is very low. Patient does have a nondisplaced fracture of the posterolateral right fifth rib. This is deep to the inferior margin of the scapula. No other rib fracture. There is minimal pleural reactive change at th e site of fracture. IMPRESSION: Nondisplaced posterolateral right fifth rib fracture deep to the inferior margin of the scapula. No fracture or dislocation of the humeral head. No scapula, AC joint or clavicle abnormality seen. No pneumothorax, pulmonary contusion or other acute chest finding.
[2018-06-18] MEDS ORDERED: HYDROCODONE/APAP 5/325 MG TAB ONE (16:23)
--- NOTE | 2018-06-18 16:57 | ER ---
Nurse's Notes [facility] Name: Jazzmine Amin Age: 42 yrs Sex: Female : 1975 Arrival Date: 06/18/2018 Time: 14:18 Bed 12 Private MD: Elab Pascual K Diagnosis: Fracture of one rib, right side Presentation: 06/18 14:35 Presenting complaint: Patient states: "I took a fall Easter Monday and my shoulder has aa5 been hurting". Pt c/o right shoulder pain. Transition of care: patient was not received from another setting of care. Onset of symptoms was June 10, 2018. Risk Assessment: Do you want to hurt yourself or someone else? Patient reports no desire to harm self or others. Initial Sepsis Screen: Does the patient meet any 2 criteria? No. Patient's initial sepsis screen is negative. Does the patient have a suspected source of infection? No. Patient's initial sepsis screen is negative. Care prior to arrival: None. 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 - Social history:: Smoking status: Patient uses tobacco products, smokes one-half pack cigarettes per day. - Ebola Screening: : No symptoms or risks identified at this time. Screenin:41 Abuse screen: Denies threats or abuse. Denies injuries from another. Nutritional ss screening: No deficits noted. Tuberculosis screening: Never had TB. Fall Risk None identified. Assessment: 15:40 Reassessment: Pt ambulatory with steady gait to exam room. Respirations remain even and ss unlabored. Appears comfortable. Neuro: Level of Consciousness is awake, alert, obeys commands. 16:11 General: Appears in no apparent distress. uncomfortable, Behavior is calm, cooperative, aj1 appropriate for age. Pain: Complains of pain in posterior aspect of right shoulder Aggravated by repositioning. Neuro: Level of Consciousness is awake, alert, obeys commands, Oriented to person, place, time, situation. Cardiovascular: Patient's skin is warm and dry. Respiratory: Airway is patent Respiratory effort is even, unlabored, Respiratory pattern is regular, symmetrical. GI: No signs and/or symptoms were reported involving the gastrointestinal system. : No signs and/or symptoms were reported regarding the genitourinary system. EENT: No signs and/or symptoms were reported regarding the EENT system. Derm: No signs and/or symptoms reported regarding the dermatologic system. Skin is pink, warm \\T\\ dry. normal. Musculoskeletal: Range of motion: intact in all extremities. 17:19 Reassessment: Patient appears in no apparent distress at this time. No changes from aj1 previously documented assessment. Patient and/or family updated on plan of care and expected duration. Pain level reassessed. Patient is alert, oriented x 3, equal unlabored respirations, skin warm/dry/pink. Vital Signs: 14:36 BP 129 / 73; Pulse 84; Resp 16 S; Temp 97.6(TE); Pulse Ox 98% on R/A; Weight 97.52 kg aa5 (R); Height 5 ft. 4 in. (162.56 cm) (R); Pain 9/10; 14:36 Body Mass Index 36.90 (97.52 kg, 162.56 cm) aa5 ED Course: 14:18 Patient arrived in ED. as 14:19 Elba Pascual MD is Private Physician. as 14:35 Triage completed. aa5 14:36 Arm band placed on. aa5 15:36 [facility] Con[facility]. jmm 15:36 Edmond Phan MD is Attending Physician. jmm 15:[address] via wheelchair. 2 16:01 [address] completed. Patient moved back from CT. az 16:02 CT Chest Wo Con In Process Unspecified. EDMS 16:04 Holli Arango, RN is Primary Nurse. aj1 16:11 Patient has correct armband on for positive identification. aj1 16:11 No provider procedures requiring assistance completed. aj1 16:56 Elba Pascual MD is Referral Physician. jmm 17:20 Patient did not have IV access during this emergency room visit. aj1 Administered Medications: 16:13 Drug: Aromas 5 mg-325 mg 1 tabs Route: PO; aj1 17:19 Follow up: Response: No adverse reaction aj1 Outcome: 16:56 Discharge ordered by . sally 17:20 Discharged to home ambulatory, with family. aj1 17:20 Condition: good 17:20 Discharge instructions given to patient, Instructed on discharge instructions, follow up and referral plans. no drinking with medication, no driving heavy equipment, medication usage, Demonstrated understanding of instructions, follow-up care, medications, Prescriptions given X 2. 17:20 Patient left the ED. aj1 Signatures: Dispatcher [employer] EDMS Holli Arango, RN RN aj1 Benson Conte PA PA jmm Martinez, Amelia as Calderon, Audri, RN RN aa5 Heather Chamorro RN RN ss McGu[place], [facility] Janice Grant
--- NOTE | 2018-06-18 16:57 | EDPHYS ---
Physician Documentation [facility] Name: Jazzmine Amin Age: 42 yrs Sex: Female : 1975 Arrival Date: 06/18/2018 Time: 14:18 Bed 12 Private MD: Elba Pascual K ED Physician Edmond Phan HPI: 06/18 15:46 This 42 yrs old Female presents to ER via Ambulatory with complaints of jmm Shoulder Injury. 15:46 The patient or guardian complains of an injury, pain. Onset: The symptoms/episode jmm began/occurred acutely, 8 day(s) ago. Modifying factors: the symptoms are alleviated by nothing. The symptoms are aggravated by movement. This is a 42 year old female with a history of migraines that presents to the ED with complaints of right sided upper back pain. Patient was bucked off a horse 8 days ago. Denies chest pain, denies shortness of breath. . RIB SAWYER: 14:36 LMP 06/09/2018 aa5 Historical: - Allergies: 14:36 Topamax; aa5 - PMHx: 14:36 ADD/ADHD; Migraines; aa5 - PSHx: 14:36 ; aa5 - Immunization history:: Flu vaccine is not up to date. - Social history:: Smoking status: Patient uses tobacco products, smokes one-half pack cigarettes per day. - Ebola Screening: : No symptoms or risks identified at this time. ROS: 15:50 Constitutional: Negative for fever, chills, and weight loss, Cardiovascular: Negative jmm for chest pain, palpitations, and edema, Respiratory: Negative for shortness of breath, cough, wheezing, and pleuritic chest pain. 15:50 Back: Positive for pain with movement. 15:50 MS/extremity: Positive for pain. 15:50 All other systems are negative. Exam: 15:50 Constitutional: This is a well developed, well nourished patient who is awake, alert, jmm and in no acute distress. Head/Face: atraumatic. Eyes: EOMI, no conjunctival erythema appreciated ENT: Moist Mucus Membranes Neck: Trachea midline, Supple Chest/axilla: Normal chest wall appearance and motion. Cardiovascular: Regular rate and rhythm. No edema appreciated Respiratory: Normal respirations, no respiratory distress appreciated Abdomen/GI: Non distended, soft 15:50 Skin: General appearance color normal MS/ Extremity: Moves all extremities, no obvious deformities appreciated, no edema noted to the lower extremities Neuro: Awake and alert, normal gait 15:50 Back: right sided scapular pain on palpation, mild midline tenderness. Vital Signs: 14:36 BP 129 / 73; Pulse 84; Resp 16 S; Temp 97.6(TE); Pulse Ox 98% on R/A; Weight 97.52 kg aa5 (R); Height 5 ft. 4 in. (162.56 cm) (R); Pain 9/10; 14:36 Body Mass Index 36.90 (97.52 kg, 162.56 cm) aa5 MDM: 15:41 Patient medically screened. [facility] 16:55 Data reviewed: vital signs, nurses notes. Counseling: I had a detailed discussion with [facility] the patient and/or guardian regarding: the historical points, exam findings, and any diagnostic results supporting the discharge/admit diagnosis, radiology results, the need for outpatient follow up, to return to the emergency department if symptoms worsen or persist or if there are any questions or concerns that arise at home. ED course: CT positive for rib fracture. Patient given IS. Patient is given return precautions for SOB, fever. Patient understood and agrees with the plan of care. . 06/18 15:50 Order name: CT Chest Wo Con; Complete Time: 16:25 [facility] 06/18 16:26 Order name: INCENTIVE SPIROMETRY [facility] Administered Medications: 16:13 Drug: Kinzers 5 mg-325 mg 1 tabs Route: PO; aj1 17:19 Follow up: Response: No adverse reaction [facility] Disposition: 06/18/18 16:56 Discharged to Home. Impression: Fracture of one rib, right side. - Condition is Stable. - Discharge Instructions: Rib Fracture, Incentive Spirometer. - Prescriptions for Tylenol- Codeine #3 300-30 mg Oral Tablet - take 1 tablet by ORAL route every 6 hours As needed; 12 tablet. - Work release form, Medication Reconciliation Form, Thank You Letter, Antibiotic Education, Prescription Opioid Use form. - Follow up: Elba Pascual MD; When: 2 - 3 days; Reason: Recheck today's complaints, Continuance of care, Re-evaluation by your physician. Signatures: Dispatcher [employer] EDMS Holli Arango, RN RN aj1 Benson Conte PA PA jmm Katarina Pacheco, RN RN aa5 Corrections: (The following items were deleted from the chart) 17:20 16:56 06/18/2018 16:56 Discharged to Home. Impression: Fracture of one rib, right side. aj1 Condition is Stable. Forms are Medication Reconciliation Form, Thank You Letter, Antibiotic Education, Prescription Opioid Use. Follow up: Elba Pascual; When: 2 - 3 days; Reason: Recheck today's complaints, Continuance of care, Re-evaluation by your physician. sally
[2018-06-18 18:46] VITALS: BP 129/73; TEMP 97.6; O2SAT 98
== END 2018-06-18 17:20 | disposition home or self-care (01) ==
LOC: ER 14:17
DX: S22.31XA Fracture of one rib, right side, initial encounter for closed fracture (principal); V80.010A Animal-rider injured by fall from or being thrown from horse in noncollision accident, initial encounter; Y93.89 Activity, other specified; Y92.9 Unspecified place or not applicable; Z88.8 Allergy status to other drugs, medicaments and biological substances; F17.210 Nicotine dependence, cigarettes, uncomplicated
CPT/HCPCS: 71250

== ENCOUNTER 2019-05-30 | Emergency (ER) | payer BC, SELFPAY | END 2019-05-30 12:29 | disposition home or self-care (01) | CPT/HCPCS: 36415; 71045; 74177; 80048; 80076; 81003; 81015; 81025; 83690; 85025; 87070; 87081; 87804; 96374; 96375; 99284; J2405; J7030; Q9967 ==

== ENCOUNTER 2019-11-30 19:35 | Emergency (ER) | payer SELFPAY ==
--- OUTSIDE RECORDS SUMMARY | 2019-11-30 19:37 | XMS REPORT | Continuity of Care Document ---
:1975 Author Organization [facility] t Address [address] [place] [address] [place] [id number] Care Team Providers Name Role Phone Unavailable Unavailable Unavailable Problems This patient has no known problems. Allergies, Adverse Reactions, Alerts This patient has no known allergies or adverse reactions. Medications This patient has no known medications. Procedures This patient has no known procedures. Results This patient has no known results.
--- NOTE | 2019-11-30 20:12 | RAD REPORT ---
EXAM DESCRIPTION: RAD - Foot Right 3 View - 11/30/2019 8:04 pm CLINICAL HISTORY: Right foot pain status post injury FINDINGS: No fracture or dislocation is seen
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
[2019-11-30] MEDS ORDERED: KETOROLAC 30 MG/ML INJ ONE (20:46)
[2019-11-30 21:18] VITALS: TEMP 97.7; O2SAT 100
[2019-11-30 21:20] VITALS: BP 129/94
== END 2019-11-30 21:13 | disposition home or self-care (01) ==
LOC: ER 19:35
DX: S90.31XA Contusion of right foot, initial encounter (principal); X58.XXXA Exposure to other specified factors, initial encounter; Y93.9 Activity, unspecified; Y92.89 Other specified places as the place of occurrence of the external cause; Z88.8 Allergy status to other drugs, medicaments and biological substances; F17.210 Nicotine dependence, cigarettes, uncomplicated
CPT/HCPCS: 96372; 99283

== ENCOUNTER 2022-11-07 15:57 | Emergency (ER) | payer BC ==
--- OUTSIDE RECORDS SUMMARY | 2022-11-07 16:00 | XMS REPORT | Continuity of Care Document ---
:1975 Author Organization [facility] t Address [address] [place] [address] [address] [place] [address] Care Team Providers Name Role Phone JUAN A MARQUEZ Primary Care Physician Unavailable TIN CHANCE Attending Clinician Unavailable TIN CHANCE Admitting Clinician Unavailable Problems This patient has no known problems. Allergies, Adverse Reactions, Alerts Allergy Allergy Status Severity Reaction(s) Onset Inactive Treating Comm ents Source Name Type Date Date Clinician NO KNOWN Drug Active [facility] ALLERGIE Class [facility] Medications This patient has no known medications. Procedures This patient has no known procedures. Encounters Start End Encounter Admission Attending Care Care Encounter Source Date/Time Date/Time Type Type Clinicians Facility Department ID 2019-02-11 2019-02-11 Emergency X MANUELA CHANCE ERT [id number] 21 [facility] 14:46:54 16:26:00 [facility] Results This patient has no known results.
[2022-11-07 19:12] LABS: Specific Gravity 1.023 (1.005-1.030); Urine Bacteria None Seen /HPF (<20); Urine Bilirubin NEGATIVE (Negative); Urine Blood Negative (Negative); Urine Clarity Clear (Clear); Urine Color Light-Yellow (Yellow); Urine Glucose NEGATIVE (Negative); Urine Mucus Slight /HPF (None Seen); Urine Protein NEGATIVE (Negative); Urine RBC <5 /HPF (None Seen); Urine Urobilinogen Normal (Normal); Urine pH 5.5 (5.0-7.0)
--- NOTE | 2022-11-07 19:16 | EDPHYS ---
Physician Documentation [facility] Name: Jazzmine Amin Age: 47 yrs Sex: Female : 1975 Arrival Date: 11/07/2022 Time: 15:57 Bed 12 Private MD: ED Physician Adama Russ HPI: 11/07 16:26 This 47 yrs old Female presents to ER via Ambulatory with complaints of Fever, Body kb Aches. 16:26 The patient or guardian reports cough, that is intermittent, described as mild, flu kb symptoms, myalgias. Onset: The symptoms/episode began/occurred yesterday. Severity of symptoms: At their worst the symptoms were mild, moderate, in the emergency department the symptoms are unchanged. Modifying factors: The symptoms are alleviated by nothing, the symptoms are aggravated by nothing. Associated signs and symptoms: Pertinent positives: sore throat. The patient has not experienced similar symptoms in the past. The patient has not recently seen a physician. Pt reports headache, chills, cough, congestion, sore throat and malaise that started yesterday. Dysuria, frequency and urgency started today. 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 - Social history:: Smoking status: Reported history of juuling and/or vaping. ROS: 16:22 Cardiovascular: Negative for chest pain, palpitations, and edema, kb 16:22 Constitutional: Positive for chills, malaise, 16:22 ENT: Positive for sinus congestion, sore throat, 16:22 Respiratory: Positive for cough, 16:22 Abdomen/GI: Positive for abdominal pain, Negative for nausea, vomiting, and diarrhea, 16:22 : Positive for urinary symptoms, urinary frequency, burning with urination, 16:22 Neuro: Positive for headache, 16:22 All other systems are negative, Exam: 16:22 Constitutional: This is a well developed, well nourished patient who is awake, alert, kb and in no acute distress. Head/Face: Normocephalic, atraumatic. ENT: Moist Mucous membranes Cardiovascular: Regular rate Respiratory: Respirations even and unlabored. No increased work of breathing. Talking in full sentences Abdomen/GI: Soft, non-tender. No distention Skin: Warm, dry with normal turgor. Normal color. MS/ Extremity: Pulses equal, no cyanosis. Neurovascular intact. Full, normal range of motion. Neuro: Awake and alert, GCS 15, oriented to person, place, time, and situation. Moves all extremities. Normal gait. Vital Signs: 16:19 Pulse 74; Resp 17; Temp 99.2(O); Pulse Ox 96% on R/A; Weight 145.15 kg; Height 5 ft. 4 me1 in. ; 16:19 BP 135 / 100 RA Sitting; me1 16:19 Body Mass Index 54.93 (145.15 kg, 162.56 cm) me1 MDM: 16:00 Patient medically screened. 16:26 Differential Diagnosis: Influenza Upper Respiratory Infection Viral Syndrome Other uti, kb covid, strep. Data reviewed: vital signs, nurses notes. 19:16 Counseling: I had a detailed discussion with the patient and/or guardian regarding the historical points, exam findings, and any diagnostic results supporting the discharge/admit diagnosis, lab results, the need for outpatient follow up, a family practitioner, to return to the emergency department if symptoms worsen or persist or if there are any questions or concerns that arise at home. 19:16 I considered the following discharge prescriptions or medication management in the emergency department I discussed and recommended Over The Counter medications, Antibiotics: At this time antibiotics are not recommended. Test considered but Not performed: CT: CT abd/pelvis considered, but pt has no abd tenderness, no cva tenderness. 11/07 16:05 Order name: Flu; Complete Time: 18:46 11/07 16:05 Order name: SARS-COV-2 RT PCR; Complete Time: 18:46 11/07 16:05 Order name: Strep 11/07 16:05 Order name: Test, Urine; Complete Time: 19:16 kb 18 16:05 Order name: Urinalysis w/ reflexes; Complete Time: 19:16 kb 18 18:38 Order name: Throat Culture EDMS Administered Medications: No medications were administered Disposition: 16:56 I was immediately available on-site in the Emergency Department for consultation in the ms3 care of the patient. Disposition Summary: 11/07/22 19:16 Discharge Ordered Notes: Location: Home kb Condition: Stable kb Diagnosis - SARS-associated coronavirus as the cause of diseases classified elsewhere kb Followup: kb - With: Emergency Department - When: As needed - Reason: Worsening of condition Followup: kb - With: Private Physician - When: 2 - 3 days - Reason: Recheck today's complaints, Continuance of care, Re-evaluation by your physician Discharge Instructions: - Discharge Summary Sheet kb - COVID-19 kb - Viral Illness, Adult kb Forms: - Medication Reconciliation Form kb - Thank You Letter kb - Antibiotic Education kb - Prescription Opioid Use kb - Patient Portal Instructions kb - Leadership Thank You Letter kb - Work release form eh3 Signatures: Dispatcher [employer] EDMS Ines Matt, SHERRI-C MOTORCYCLE REPAIR SHOP SUPERVISOR-Adama Reid, DO ms3 Sarita Rodríguez, RN RN me1 Corrections: (The following items were deleted from the chart) 16:26 16:22 ENT: Positive for sinus congestion, kb kb
--- NOTE | 2022-11-07 19:16 | ER ---
Nurse's Notes [facility] Name: Jazzmine Amin Age: 47 yrs Sex: Female : 1975 Arrival Date: 11/07/2022 Time: 15:57 Bed 12 Private MD: Diagnosis: SARS-associated coronavirus as the cause of diseases classified elsewhere Presentation: 11/07 16:19 Chief complaint: Patient states: c/o fever, body aches, sore throat since yesterday. tn1 Coronavirus screen: Vaccine status: Patient reports being unvaccinated. chills, fatigue, fever, muscle pain, sore throat. Ebola Screen: No symptoms or risks identified at this time. Initial Sepsis Screen: Does the patient meet any 2 criteria? No. Patient's initial sepsis screen is negative. Does the patient have a suspected source of infection? No. Patient's initial sepsis screen is negative. Risk Assessment: Do you want to hurt yourself or someone else? Patient reports no desire to harm self or others. Onset of symptoms was November 06, 2022. 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 - Social history:: Smoking status: Reported history of juuling and/or vaping. Screenin:39 [facility] ED Fall Risk Assessment (Adult) History of falling in the last 3 months, db including since admission No falls in past 3 months (0 pts) Score/Fall Risk Level 0 - 2 = Low Risk Oriented to surroundings, Maintained a safe environment. Abuse screen: Denies threats or abuse. Denies injuries from another. Nutritional screening: No deficits noted. Tuberculosis screening: No symptoms or risk factors identified. Assessment: 17:39 Reassessment: Patient appears in no apparent distress at this time. Patient and/or db family updated on plan of care and expected duration. Pain level reassessed. Patient is alert, oriented x 3, equal unlabored respirations, skin warm/dry/pink. General: Appears in no apparent distress. comfortable, Behavior is calm, cooperative, appropriate for age. Pain: Complains of pain in BODY. Neuro: No deficits noted. Level of Consciousness is awake, alert, obeys commands, Oriented to person, place, time, situation. Respiratory: Airway is patent Respiratory effort is even, unlabored, Respiratory pattern is regular, symmetrical. 18:30 Reassessment: Patient appears in no apparent distress at this time. Patient and/or db family updated on plan of care and expected duration. Pain level reassessed. Patient is alert, oriented x 3, equal unlabored respirations, skin warm/dry/pink. 19:05 Reassessment: REPORT GIVEN TO MARBELLA CALLAHAN. db 19:30 Reassessment: Patient appears in no apparent distress at this time. Patient and/or eh3 family updated on plan of care and expected duration. Pain level reassessed. Patient is alert, oriented x 3, equal unlabored respirations, skin warm/dry/pink. Vital Signs: 16:19 Pulse 74; Resp 17; Temp 99.2(O); Pulse Ox 96% on R/A; Weight 145.15 kg; Height 5 ft. 4 me1 in. ; 16:19 BP 135 / 100 RA Sitting; me1 16:19 Body Mass Index 54.93 (145.15 kg, 162.56 cm) me1 ED Course: 15:59 Patient arrived in ED. rg4 16:00 [facility] kb 16:00 Adama Russ DO is Attending Physician. kb 16:21 Triage completed. me1 16:21 Arm band placed on Patient placed in waiting room. me1 16:33 Kary Nuñez, MARBELLA is Primary Nurse. db 17:39 Patient has correct armband on for positive identification. Bed in low position. Call db light in reach. Side rails up X 1. 17:39 Urine collected: clean catch specimen, clear, COVID swab sent to lab. Flu and/or RSV db swab sent to lab. Strep swab sent to lab. 19:00 Provided Education on: Use of call dunn. eh3 19:39 No provider procedures requiring assistance completed. Patient did not have IV access eh3 during this emergency room visit. Administered Medications: No medications were administered Medication: 17:39 VIS not applicable for this client. db Outcome: 19:16 Discharge ordered by MD. costello 19:39 Discharged to home ambulatory, 3 19:39 Condition: stable 19:39 Discharge instructions given to patient, Instructed on discharge instructions, follow up and referral plans. Demonstrated understanding of instructions, follow-up care, 19:40 Patient left the ED. 3 Signatures: Ines Matt, JORDAN WORKER-C SHERRI-Cely Osorio rg4 Arielle Jorgensen RN RN 3 Kary Nuñez, RN RN Sarita Rodríguez, RN RN tn1
[2022-11-07 21:42] VITALS: BP 135/100; TEMP 99.2; O2SAT 96
== END 2022-11-07 19:40 | disposition home or self-care (01) ==
LOC: ER 15:57
DX: U07.1 COVID-19 (principal); Z91.09 Other allergy status, other than to drugs and biological substances
CPT/HCPCS: 81001; 81025; 87070; 87081; 87635; 87804

== ENCOUNTER 2023-06-14 11:03 | Emergency (ER) | payer BC ==
--- OUTSIDE RECORDS SUMMARY | 2023-06-14 11:07 | XMS REPORT | Continuity of Care Document ---
Author Name Unknown Address [address] [facility] [address] [place] [address] [facility] thconnect Address [address] [facility] [address] [place] [address] Care Team Providers Care Road Marker Name Role Phone JUAN A MARQUEZ Primary Care Physician Unavailab le [email or web address]_Kadiyala_S Attending Clinician UnavailTIN Marks Attending Clinician Unavailable HILARIO_GCBZW_Auroradiyala_S Admitting Clinician UnavailTIN Marks Admitting Clinician Unavailable Allergies, Adverse Reactions, Alerts Allergy Name Allergy Type Status Severity Reaction(s) Onset Date Inactive Date Treating Clinician Comments Source NO KNOWN ALLERGIE S Drug Class Active [facility] Encounters Start Date/Time End Date/Time Encounter Type Admission Type Attending Clinicians Care Facility Care Department Encounter ID Source 2022-12-16 00:00:00 2022-12-16 00:00:00 Outpatient [email or web address] diyala_S [facility] [id number] [facility] 2019-02-11 14:46:54 2019-02-11 16:26:00 Emergency X [facility] ERT [id number] [facility]
[2023-06-14] MEDS ORDERED: METOCLOPRAMIDE 10 MG/2mL INJ ONE (11:39)
[2023-06-14] MEDS ORDERED: KETOROLAC 30 MG/ML INJ ONE (11:39)
[2023-06-14] MEDS ORDERED: NA CHLORIDE 0.9% 50 ML ONE (11:40)
--- NOTE | 2023-06-14 12:09 | RAD REPORT ---
EXAM DESCRIPTION: CT - Head Brain Wo Cont - 06/14/2023 11:45 am CLINICAL HISTORY: Headache COMPARISON: 2015 TECHNIQUE: Computed axial tomography of the head was obtained. IV contrast was not requested. All CT scans are performed using dose optimization technique as appropriate and may include automated exposure control or mA/KV adjustment according to patient size. FINDINGS: An intracranial bleed is not seen The ventricles are normal in caliber No significant hypodense areas within the brain visualized No extra-axial fluid collection is noted. Fluid within the sinuses/ mastoids is not seen IMPRESSION: No acute intracranial abnormality is seen If patient's symptoms persist MRI of the brain would be recommended
[2023-06-14 12:18] LABS: Absolute Basophils 0.1 K/uL (0-0.5); Absolute Eosinophils 0.3 K/uL (0-0.5); Absolute Lymphocytes (CBC) 2.4 K/uL (0.7-4.9); Absolute Monocytes 0.8 K/uL (0.1-1.3); Absolute Neutrophil 5.1 K/uL (1.8-8.0); Basophils % 1.1 % (0-1.3); Eosinophils % 3.4 % (0-4.4); Hematocrit 40.8 % (36.0-45.0); Hemoglobin 13.4 g/dL (12.0-15.0); MCH 28.4 pg (27.0-35.0); MCHC 32.9 g/dL (32.0-36.0); MCV 86.3 fL (80-100); MPV 9.3 fL (7.6-11.3); Monocytes % 8.9 % (3.3-12.3); Neutrophils % 58.6 % (41.7-73.7); Nucleated Red Blood Cells % 0.1 % (0-0); Platelets 329 thou/uL (152-406); RBC Red Blood Cell Count 4.73 M/uL (3.86-4.86); Red Cell Distribution Width 13.3 % (12.1-15.2)
[2023-06-14 12:34] LABS: Albumin 3.6 g/dL (3.4-5.0); Albumin/Globulin Ratio 0.9 (1.1-1.8); Bilirubin Total 0.2 mg/dL (0.2-1.0); Protein, Total 7.6 g/dL (6.4-8.2)
--- NOTE | 2023-06-14 12:56 | EDPHYS ---
Physician Documentation [facility] Name: Jazzmine Amin Age: 47 yrs Sex: Female : 1975 Arrival Date: 06/14/2023 Time: 11:03 Bed 3 Private MD: ED Physician Chris Crews HPI: 06/13 11:36 This 47 yrs old Female presents to ER via Ambulatory with complaints of Headache. sp3 11:36 47-year-old female with history of ADHD, migraines currently on Imitrex now presents to [facility] the ED with acute on chronic migraines. Patient states she has not had a migraine like this in "quite some time". Her overall migraine frequency has decreased over the last several years. This 1 came on gradually over the course of the morning. She denies any direct trauma, fever, known sick contacts, neck pain, chest pain, shortness of breath, abdominal pain, vomiting, diarrhea, rash, or any other signs or symptoms on ROS at this time.. 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 - Infectious Disease History:: Denies. - Social history:: Smoking status: Patient denies any tobacco usage or history of. ROS: 11:37 Constitutional: Negative for fever, chills, and weight loss, Eyes: Negative for injury, sp3 pain, redness, and discharge, ENT: Negative for injury, pain, and discharge, Neck: Negative for injury, pain, and swelling, Cardiovascular: Negative for chest pain, palpitations, and edema, Respiratory: Negative for shortness of breath, cough, wheezing, and pleuritic chest pain, Abdomen/GI: Negative for abdominal pain, nausea, vomiting, diarrhea, and constipation, Back: Negative for injury and pain, MS/Extremity: Negative for injury and deformity, Skin: Negative for injury, rash, and discoloration, Neuro: Negative for headache, weakness, numbness, tingling, and seizure, Psych: Negative for depression, anxiety, suicide ideation, homicidal ideation, and hallucinations, Allergy/Immunology: Negative for hives, rash, and allergies, Endocrine: Negative for neck swelling, polydipsia, polyuria, polyphagia, and marked weight changes, Hematologic/Lymphatic: Negative for swollen nodes, abnormal bleeding, and unusual bruising, 11:37 All other systems are negative, Exam: 11:37 Constitutional: This is a well developed, well nourished patient who is awake, alert, sp3 and in no acute distress. Head/Face: Normocephalic, atraumatic. ENT: Nares patent. No nasal discharge, no septal abnormalities noted. External auditory canals are clear. Oropharynx with no redness, swelling, or masses, exudates, or evidence of obstruction, uvula midline. Mucous membranes moist. Neck: Trachea midline, no thyromegaly or masses palpated, and no cervical lymphadenopathy. Supple, full range of motion without nuchal rigidity, or vertebral point tenderness. No Meningismus. Chest/axilla: Normal chest wall appearance and motion. Nontender with no deformity. No lesions are appreciated. Cardiovascular: Regular rate and rhythm with a normal S1 and S2. No gallops, murmurs, or rubs. Normal PMI, no JVD. No pulse deficits. Respiratory: Lungs have equal breath sounds bilaterally, clear to auscultation and percussion. No rales, rhonchi or wheezes noted. No increased work of breathing, no retractions or nasal flaring. Abdomen/GI: Soft, non-tender, with normal bowel sounds. No distension or tympany. No guarding or rebound. No evidence of tenderness throughout. Back: No spinal tenderness. No costovertebral tenderness. Full range of motion. Skin: Warm, dry with normal turgor. Normal color with no rashes, no lesions, and no evidence of cellulitis. MS/ Extremity: Pulses equal, no cyanosis. Neurovascular intact. Full, normal range of motion. Neuro: Awake and alert, GCS 15, oriented to person, place, time, and situation. Cranial nerves II-XII grossly intact. Motor strength 5/5 in all extremities. Sensory grossly intact. Cerebellar exam normal. Normal gait. Psych: Awake, alert, with orientation to person, place and time. Behavior, mood, and affect are within normal limits. 11:37 Eyes: Normal eye exam including pupils and anterior chamber. Patient is photosensitive.. Vital Signs: 11:27 BP 140 / 102; Pulse 79; Resp 16; Temp 97.6; Pulse Ox 97% on R/A; Weight 127.01 kg; iw Height 5 ft. 4 in. ; Pain 8/10; 11:54 BP 130 / 102; Pulse 77; Resp 19 S; Pulse Ox 96% on R/A; as6 12:54 BP 135 / 97; Pulse 82; Resp 18 S; Pulse Ox 100% on R/A; as6 11:27 Body Mass Index 48.06 (127.01 kg, 162.56 cm) iw 11:27 Pain Scale: Adult iw MDM: 11:31 Patient medically screened. sp3 11:38 Data reviewed: vital signs, nurses notes, old medical records, lab test result(s), sp3 radiologic studies. ED course: 46-year-old female with recurrent migraine. Last imaging greater than 10 years ago. Patient states that this migraine is "different". Will obtain laboratory values, CT scan of the head and administer ketorolac and Reglan IV. Differential diagnosis includes migraine, other headache of unknown etiology, ICH, electrolyte abnormality, viral syndrome, among others. I am not highly suspicious for meningitis, encephalitis or any other critical process. Disposition pending workup and patient course.. 12:54 ED course: CT head negative and labs are normal. Patient is much improved after sp3 medications. We will safely discharged home at this time.. 06/13 11:35 Order name: CBC with Diff; Complete Time: 12:53 sp3 06/13 11:35 Order name: CMP; Complete Time: 12:53 sp3 06/13 11:35 Order name: CT Head Brain wo Cont; Complete Time: 12:13 sp3 06/13 11:35 Order name: IV Saline Lock; Complete Time: 11:38 sp3 06/13 11:35 Order name: Labs collected and sent; Complete Time: 11:38 sp3 Administered Medications: 11:54 Drug: Ketorolac IVP 30 mg IVP once Route: IVP; Site: left antecubital; as6 12:57 Follow up: Response: No adverse reaction as6 11:54 Drug: metoCLOPramide IVP 10 mg IVP once; over 1 to 2 minutes Route: IVP; Site: left as6 antecubital; 12:57 Follow up: Response: No adverse reaction as6 Disposition Summary: 06/14/23 12:55 Discharge Ordered Notes: Location: Home sp3 Condition: Stable sp3 Diagnosis - Migraine headache sp3 Followup: sp3 - With: Private Physician - When: Upon discharge from the Emergency Department - Reason: Continuance of care Discharge Instructions: - Discharge Summary Sheet sp3 - Migraine Headache sp3 Forms: - Work release form iw - Medication Reconciliation Form sp3 - Antibiotic Education sp3 - Prescription Opioid Use sp3 - Patient Portal Instructions sp3 - Leadership Thank You Letter sp3 Signatures: Dispatcher [employer] EDSusanna Alonso, RN RN iw Chris Crews MD MD sp3 Colin Crespo RN RN as6 Corrections: (The following items were deleted from the chart) 11:36 11:36 Head Brain Wo Cont+CT.RAD.BRZ ordered. EDMS EDMS
--- NOTE | 2023-06-14 12:56 | ER ---
Nurse's Notes [facility] Name: Jazzmine Amin Age: 47 yrs Sex: Female : 1975 Arrival Date: 06/14/2023 Time: 11:03 Bed 3 Private MD: Diagnosis: Migraine headache Presentation: 06/13 11:26 Chief complaint: Patient states: i have a really bad headache and I feel off balance, I iw have a hx of migraines , it started this morning when I woke up , I went to sleep at 8 pm last night. Coronavirus screen: At this time, the client does not indicate any symptoms associated with coronavirus-19. Ebola Screen: Patient negative for fever greater than or equal to 101.5 degrees Fahrenheit, and additional compatible Ebola Virus Disease symptoms Patient denies exposure to infectious person. Patient denies travel to an Ebola-affected area in the 21 days before illness onset. No symptoms or risks identified at this time. Initial Sepsis Screen: Does the patient meet any 2 criteria? No. Patient's initial sepsis screen is negative. Does the patient have a suspected source of infection? No. Patient's initial sepsis screen is negative. Risk Assessment: Do you want to hurt yourself or someone else? Patient reports no desire to harm self or others. Onset of symptoms was June 14, 2023. 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 - Infectious Disease History:: Denies. - Social history:: Smoking status: Patient denies any tobacco usage or history of. Screenin:56 [facility] ED Fall Risk Assessment (Adult) History of falling in the last 3 months, as6 including since admission No falls in past 3 months (0 pts) Confusion or Disorientation No (0 pts) Intoxicated or Sedated No (0 pts) Impaired Gait No (0 pts) Mobility Assist Device Used No (0 pt) Altered Elimination No (0 pt) Score/Fall Risk Level 0 - 2 = Low Risk Oriented to surroundings, Maintained a safe environment, Educated pt \T\ family on fall prevention, incl call for assistance when getting out of bed, Assessed \T\ reinforced patient's understanding of fall precautions. Abuse screen: Denies threats or abuse. Denies injuries from another. Nutritional screening: No deficits noted. Tuberculosis screening: No symptoms or risk factors identified. Assessment: 11:55 General: Appears uncomfortable, Behavior is calm, cooperative. General: Appears obese. as6 Pain: Complains of pain in head Quality of pain is described as aching. Neuro: Level of Consciousness is awake, alert, obeys commands, Oriented to person, place, time, situation, Reports headache photophobia. Cardiovascular: Capillary refill < 3 seconds Patient's skin is warm and dry. Respiratory: Respiratory effort is even, unlabored, Respiratory pattern is regular, symmetrical. GI: Reports nausea. : No deficits noted. No signs and/or symptoms were reported regarding the genitourinary system. EENT: No deficits noted. No signs and/or symptoms were reported regarding the EENT system. Derm: Skin is intact, is healthy with good turgor. Musculoskeletal: Circulation, motion, and sensation intact. 12:57 Reassessment: Patient appears in no apparent distress at this time. Patient and/or as6 family updated on plan of care and expected duration. Pain level reassessed. Patient is alert, oriented x 3, equal unlabored respirations, skin warm/dry/pink. Patient states feeling better. Patient states symptoms have improved. Vital Signs: 11:27 BP 140 / 102; Pulse 79; Resp 16; Temp 97.6; Pulse Ox 97% on R/A; Weight 127.01 kg; iw Height 5 ft. 4 in. ; Pain 8/10; 11:54 BP 130 / 102; Pulse 77; Resp 19 S; Pulse Ox 96% on R/A; as6 12:54 BP 135 / 97; Pulse 82; Resp 18 S; Pulse Ox 100% on R/A; as6 11:27 Body Mass Index 48.06 (127.01 kg, 162.56 cm) iw 11:27 Pain Scale: Adult iw ED Course: 11:06 Patient arrived in ED. rg4 11:14 Chris Crews MD is Attending Physician. sp3 11:27 Triage completed. iw 11:33 Sergio Tucker, RN is Primary Nurse. ll1 11:33 Arm band placed on Patient placed in an exam room, on a stretcher. ll1 11:42 CMP Sent. bc6 11:42 Initial lab(s) drawn, by me, sent to lab. Inserted saline lock: 20 gauge in left bc6 antecubital area, using aseptic technique. Blood collected. 11:46 CT Head Brain wo Cont In Process Unspecified. EDMS 11:56 Bed in low position. Call light in reach. Side rails up X2. Client placed on continuous as6 cardiac and pulse oximetry monitoring. NIBP monitoring applied. PO fluids given. 12:54 Provided Education on: follow up. as6 12:54 No provider procedures requiring assistance completed. as6 12:56 IV discontinued, intact, bleeding controlled, No redness/swelling at site. Pressure as6 dressing applied. Administered Medications: 11:54 Drug: Ketorolac IVP 30 mg IVP once Route: IVP; Site: left antecubital; as6 12:57 Follow up: Response: No adverse reaction as6 11:54 Drug: metoCLOPramide IVP 10 mg IVP once; over 1 to 2 minutes Route: IVP; Site: left as6 antecubital; 12:57 Follow up: Response: No adverse reaction as6 Medication: 11:56 VIS not applicable for this client. as6 Outcome: 12:54 Discharged to home ambulatory, as6 12:54 Condition: stable 12:55 Discharge ordered by sp3 13:00 Discharge instructions given to patient, Instructed on discharge instructions, follow as6 up and referral plans. Demonstrated understanding of instructions, follow-up care, 13:00 Patient left the ED. as6 Signatures: Dispatcher [employer] Susanna Cochran, RN Cely Burciaga rg4 Sergio Tuckre RN RN ll1 Chris Crews MD MD sp3 Colin Crespo RN RN as6 Isabel Banks [facility]
[2023-06-14 13:34] VITALS: BP 135/97; TEMP 97.6; O2SAT 100
== END 2023-06-14 13:00 | disposition home or self-care (01) ==
LOC: ER 11:03
DX: G43.909 Migraine, unspecified, not intractable, without status migrainosus (principal); Z88.8 Allergy status to other drugs, medicaments and biological substances
CPT/HCPCS: 85025; 36415; 80053; 70450; J2765; 96374; 96375; 99284

== ENCOUNTER 2023-10-27 12:16 | Emergency (ER) | payer BC ==
--- OUTSIDE RECORDS SUMMARY | 2023-10-27 12:18 | XMS REPORT | Continuity of Care Document ---
Author Name Unknown Address [address] [facility] [address] [place] [address] [facility] Address [address] [facility] [address] [place] [address] Care Team Providers Care Jailor Name Role Phone JUAN A MARQUEZ Primary Care Physician Unavailab le [email or web address]_Kadimarianaa_S Attending Clinician TIN Montano Attending Clinician Unavailable HILARIO_GCBZW_Sanjanaa_S Admitting Clinician TIN Montano Admitting Clinician Unavailable Problems Condition Name Condition Details Condition Category Status Onset Date Resolution Date Last Treatment Date Treating Clinician Comments Source Bacterial vaginosis Bacterial Vaginosis Problem Active 06-29 00:00: 00 [facility] Female stress incontinen ce Female Stress Incontinen ce Problem Active 06-27 00:00: 00 [facility] Urgent desire to urinate Urgent Desire to Urinate Problem Active 06-27 00:00: 00 [facility] Obesity Obesity Problem Active 06-27 00:00: 00 [facility] Anxiety Anxiety Problem Active 06-27 00:00: 00 [facility] Depressive disorder Depressive Disorder Problem Active 06-27 00:00: 00 [facility] Acute vaginitis Acute Vaginitis Problem Active 06-27 00:00: 00 [facility] Allergies, Adverse Reactions, Alerts Allergy Name Allergy Type Status Severity Reaction(s) Onset Date Inactive Date Treating Clinician Comments Source NO KNOWN ALLERGIE S Drug Class Active [facility] Social History Smoking Status Start Date Stop Date Source Current Every Day Smoker [facility] Medications Ordered Medication Name Filled Medication Name Start Date Stop Date Current Medication? Ordering Clinician Indication Dosage Frequency Signature (SIG) Comments Components Source aripiprazol e 10 mg tablet TAKE 1 TABLET BY MOUTH IN THE MORNING aripiprazol e 10 mg tablet TAKE 1 TABLET BY MOUTH IN THE MORNING No aripiprazo le 10 mg tablet TAKE 1 TABLET BY MOUTH IN THE MORNING [facility] duloxetine 60 mg capsule,del ayed release TAKE 1 CAPSULE BY MOUTH ONCE DAILY IN THE MORNING duloxetine 60 mg capsule,del ayed release TAKE 1 CAPSULE BY MOUTH ONCE DAILY IN THE MORNING No duloxetine 60 mg capsule,de layed release TAKE 1 CAPSULE BY MOUTH ONCE DAILY IN THE MORNING [facility] metronidazo le 500 mg tablet Take 1 tablet every 12 hours by oral route for 7 days. metronidazo le 500 mg tablet Take 1 tablet every 12 hours by oral route for 7 days. No 1 Q12H metronidaz ole 500 mg tablet Take 1 tablet every 12 hours by oral route for 7 days. [facility] Vital Signs Vital Name Observation Time Observation Value Comments S kraigce BMI (Body Mass Index) 2023-06-28 00:00:00 49.9 kg/m2 [facility] Body Weight 2023-06-28 00:00:00 291 [lb_av] [facility] Height 2023-06-28 00:00:00 64 [facility] Systolic 2023-06-28 00:00:00 140 mm[Hg] [facility] ia Medical BP Diastolic 2023-06-28 00:00:00 92 mm[Hg] [facility] Procedures Procedure Date / Time Performed Performing Clinicia n Source MAMMO, screening, digital, bilateral 2023-06-28 00:00[facility]00 [facility] 1999-02-[facility] 00:00:00 [facility] Medical Section 1997-02-20 00:00:00 [facility] Medical Plan of Care Planned Activity Planned Date Details Comments Source Diagnostic Test Pending 2023-06-28 00:00:00 pap, LB + HPV [code = pap, LB + HPV] [facility] Diagnostic Test Pending 2023-06-28 00:00:00 infectious disease panel [code = infectious disease panel] [facility] Encounters Start Date/Time End Date/Time Encounter Type Admission Type Attending Clinicians Care Facility Care Department Encounter ID Source 2023-06-28 00:00:00 2023-06-28 00:00:00 Ninoska Chatman, CROP DUSTER: [address], [facility] [address], [place] [address] , Ph. Pending sale to [facility] - [email or web address]_La charlie Matt* [id number] [facility] 2022-12-16 00:00:00 2022-12-16 00:00:00 Outpatient [email or web address] gini_S [facility] [id number] [facility] 2019-02-11 14:46:54 2019-02-11 16:26:00 Emergency X [facility] ERT [id number] [facility] Results Test Description Test Time Test Comments Results Resul t Comments Source infectious disease panel 2023-06-28 04:44:00 Abnormal Status [facility]
[2023-10-27] MEDS ORDERED: NA CHLORIDE 0.9% 1,000 ML ONE (12:43)
[2023-10-27 13:02] LABS: Specific Gravity 1.029 (1.005-1.030)
[2023-10-27 13:04] LABS: Specific Gravity 1.029 (1.005-1.030); Urine Bacteria <20 /HPF (<20); Urine Bilirubin NEGATIVE (Negative); Urine Blood Negative (Negative); Urine Clarity Turbid (Clear); Urine Color Yellow (Yellow); Urine Culture Reflex Order NOT NEEDED; Urine Glucose NEGATIVE (Negative); Urine Ketones NEGATIVE (Negative); Urine Microscopic Reflex YN ORDER UMIC; Urine Mucus Slight /HPF (None Seen); Urine Nitrite NEGATIVE (Negative); Urine Protein NEGATIVE (Negative); Urine RBC None Seen /HPF (None Seen); Urine Urobilinogen Normal (Normal); Urine WBC <5 /HPF (<5); Urine pH 5.5 (5.0-7.0)
[2023-10-27 13:05] LABS: Absolute Basophils 0.1 K/uL (0-0.5); Absolute Eosinophils 0.3 K/uL (0-0.5); Absolute Monocytes 0.8 K/uL (0.1-1.3); Absolute Neutrophil 6.5 K/uL (1.8-8.0); Basophils % 1.1 % (0-1.3); Eosinophils % 3.2 % (0-4.4); Hematocrit 39.5 % (36.0-45.0); Hemoglobin 12.9 g/dL (12.0-15.0); Lymphocytes % 20.2 % (15.3-44.8); MCH 28.7 pg (27.0-35.0); MCHC 32.6 g/dL (32.0-36.0); MPV 9.2 fL (7.6-11.3); Monocytes % 8.7 % (3.3-12.3); Neutrophils % 66.8 % (41.7-73.7); Platelets 309 thou/uL (152-406); RBC Red Blood Cell Count 4.49 M/uL (3.86-4.86); Red Cell Distribution Width 13.2 % (12.1-15.2)
[2023-10-27 13:19] LABS: Albumin 3.5 g/dL (3.4-5.0); Albumin/Globulin Ratio 0.9 (1.1-1.8); Anion Gap 6.9 mEq/L (5.0-15.0); Bilirubin Total 0.2 mg/dL (0.2-1.0); Globulin 3.7 g/dL (2.3-3.5); Potassium 3.9 mEq/L (3.5-5.1); Protein, Total 7.2 g/dL (6.4-8.2)
[2023-10-27 14:51] LABS: SARS-CoV-2 Antigen CONTROL BLUE LINE VIS/BG OK; SARS-CoV-2 Antigen Rapid Res Negative (Negative)
--- NOTE | 2023-10-27 15:50 | RAD REPORT ---
EXAM DESCRIPTION: CT - Soft Tissue Neck W/Contr CLINICAL HISTORY: SWELLING COMPARISON: No comparisons TECHNIQUE: Thin axial CT images of the neck, performed following intravenous administration of 100 mL Isovue-300. Multiplanar reformats were generated and reviewed. All CT scans are performed using dose optimization technique as appropriate and may include automated exposure control or mA/KV adjustment according to patient size. FINDINGS: Bilateral enlargement and hyperenhancement of the submandibular glands, symmetric in appea bridget, with adjacent fat stranding and latissimus thickening, without a discrete focal mass, radioden se calculi, or evidence of ductal dilation. The parotid and sublingual glands are unremarkable. Bilateral mild prominence of the palatini tonsils. No peritonsillar fat stranding or abnormal collect ions. Nasopharyngeal tissues are normal in appearance. Fossa Rosenmller are normal. Parapharyngeal fat triangles are symmetric. Tongue base structures are normal. Epiglottis and aryepiglottic folds are normal. Piriform sinuses are well aerated. The vocal cords are normal in appearance. Mildly prominent bilateral upper cervical lymph nodes, largest at level 2A on the right measuring 12 mm in short axis with preserved fatty hilum. These are likely reactive/inflammatory. Upper lung carney are clear. Included intracranial contents are unremarkable. IMPRESSION: Bilateral symmetric enlargement and hyperenhancement of the submandibular glands with mi ld adjacent fat stranding and platysmal thickening, suggesting infectious or inflammatory etiology. Mildly prominent bilateral upper deep cervical lymph nodes, also likely reactive/ inflammatory. Mild prominence of the palatini tonsils as well. No suspicious mucosal lesions.
[2023-10-27] MEDS ORDERED: CEFTRIAXONE 1000 MG/VIAL ONE (16:24)
[2023-10-27] MEDS ORDERED: AMOX/K CLAV 875 MG TAB ONE (16:24)
--- NOTE | 2023-10-27 16:25 | EDPHYS ---
Physician Documentation [facility] Name: Jazzmine Amin Age: 48 yrs Sex: Female : 1975 Arrival Date: 10/27/2023 Time: 12:16 Bed 9 Private MD: ED Physician Otilio Wade HPI: 10/26 16:18 This 48 yrs old Female presents to ER via Ambulatory with complaints of Neck maksim Swelling. 16:18 The patient or guardian complains of pain. The symptoms are located on the right jaw maksim and left jaw. Onset: The symptoms/episode began/occurred 2 day(s) ago. Context: The problem was sustained at an unknown location, The neck injury/problem resulted from from unknown cause. Associated signs and symptoms: The patient has no apparent associated signs or symptoms. The pain does not radiate. Modifying factors: The symptoms are alleviated by nothing. the symptoms are aggravated by nothing. Severity of symptoms: At their worst the symptoms were mild, in the emergency department the symptoms are unchanged. The patient has not experienced similar symptoms in the past. SOLE SKIVER: 16:41 0, unknown ar6 Historical: - Allergies: 12:28 Topamax; ld1 - PMHx: 12:28 ADD/ADHD; Migraines; ld1 - PSHx: 12:28 section; ld1 - Immunization history:: Adult Immunizations up to date. - Infectious Disease History:: Denies. - Social history:: Smoking status: Patient denies any tobacco usage or history of. ROS: 16:19 Constitutional: Negative for fever, chills, and weight loss, Eyes: Negative for injury, maksim pain, redness, and discharge, Cardiovascular: Negative for chest pain, palpitations, and edema, Respiratory: Negative for shortness of breath, cough, wheezing, and pleuritic chest pain, Abdomen/GI: Negative for abdominal pain, nausea, vomiting, diarrhea, and constipation, Back: Negative for injury and pain, : Negative for injury, bleeding, discharge, and swelling, MS/Extremity: Negative for injury and deformity, Skin: Negative for injury, rash, and discoloration, Neuro: Negative for headache, weakness, numbness, tingling, and seizure, Psych: Negative for depression, anxiety, suicide ideation, homicidal ideation, and hallucinations, Allergy/Immunology: Negative for hives, rash, and allergies, Endocrine: Negative for neck swelling, polydipsia, polyuria, polyphagia, and marked weight changes, Hematologic/Lymphatic: Negative for swollen nodes, abnormal bleeding, and unusual bruising, 16:19 ENT: Positive for rhinorrhea, sinus congestion, sore throat, 16:19 Neck: Positive for pain at rest, swollen nodes, of the left jaw and right jaw, Exam: 16:19 Constitutional: This is a well developed, well nourished patient who is awake, alert, maksim and in no acute distress. Eyes: Pupils equal round and reactive to light, extra-ocular motions intact. Lids and lashes normal. Conjunctiva and sclera are non-icteric and not injected. Cornea within normal limits. Periorbital areas with no swelling, redness, or edema. Neck: Trachea midline, no thyromegaly or masses palpated, and no cervical lymphadenopathy. Supple, full range of motion without nuchal rigidity, or vertebral point tenderness. No Meningismus. Chest/axilla: Normal chest wall appearance and motion. Nontender with no deformity. No lesions are appreciated. Cardiovascular: Regular rate and rhythm with a normal S1 and S2. No gallops, murmurs, or rubs. Normal PMI, no JVD. No pulse deficits. Respiratory: Lungs have equal breath sounds bilaterally, clear to auscultation and percussion. No rales, rhonchi or wheezes noted. No increased work of breathing, no retractions or nasal flaring. Abdomen/GI: Soft, non-tender, with normal bowel sounds. No distension or tympany. No guarding or rebound. No evidence of tenderness throughout. Back: No spinal tenderness. No costovertebral tenderness. Full range of motion. Skin: Warm, dry with normal turgor. Normal color with no rashes, no lesions, and no evidence of cellulitis. MS/ Extremity: Pulses equal, no cyanosis. Neurovascular intact. Full, normal range of motion. Neuro: Awake and alert, GCS 15, oriented to person, place, time, and situation. Cranial nerves II-XII grossly intact. Motor strength 5/5 in all extremities. Sensory grossly intact. Cerebellar exam normal. Normal gait. Psych: Awake, alert, with orientation to person, place and time. Behavior, mood, and affect are within normal limits. 16:19 Head/face: Noted is swelling, tenderness, of the right jaw and left jaw, 16:19 ENT: Mouth: Oral mucosa: normal, pink and intact, moist, Gums: normal with healthy appearance, Tongue: is normal, abscess, is not appreciated, drooling, is not appreciated, Vital Signs: 12:28 Pulse 75; Resp 18; Temp 98.2(TE); Pulse Ox 99% on R/A; Weight 124.74 kg; Height 5 ft. 4 ld1 in. ; Pain 0/10; 12:34 BP 130 / 80; Pulse 78; Resp 18; Temp 98.3; Pulse Ox 100% ; Weight 79.38 kg; Height 5 ar6 ft. 4 in. ; Pain 7/10; 14:42 BP 146 / 89; Pulse 72; Resp 18; Pulse Ox 99% on R/A; ar6 16:39 BP 138 / 76; Pulse 77; Resp 18; Pulse Ox 100% on R/A; ar6 16:41 BP 130 / 77; Pulse 75; Resp 18; Pulse Ox 100% ; ar6 12:34 Body Mass Index 30.04 (79.38 kg, 162.56 cm) ar6 12:28 Pain Scale: Adult ld1 12:34 Pain Scale: Adult ar6 MDM: 12:20 Patient medically screened. [facility] 16:20 Differential diagnosis: Cervical Raiculopathy cervical strain. Data reviewed: vital maksim signs, nurses notes, lab test result(s), radiologic studies, CT scan. Consideration of Admission/Observation Escalation of care including admission/observation considered. I considered the following discharge prescriptions or medication management in the emergency department Medications were administered in the Emergency Department. See MAR. Independent interpretation of the following test(s) in the Emergency Department CT Scan: My interpretation is ct soft tissue. Historians other than the Patient: pt well informed. Care significantly affected by the following chronic conditions: migraine, add/adha. 10/26 12:22 Order name: CBC with Diff; Complete Time: 13:47 [facility] 10/26 12:22 Order name: Comprehensive Metabolic Panel; Complete Time: 13:47 [facility] 10/26 12:22 Order name: Urinalysis w/ reflexes; Complete Time: 13:47 [facility] 10/26 12:22 Order name: PREGU; Complete Time: 13:47 [facility] 10/26 13:47 Order name: Strep [facility] 10/26 13:57 Order name: SARS RAPID; Complete Time: 15:15 [facility] 10/26 13:57 Order name: Flu; Complete Time: 15:15 [facility] 10/26 14:54 Order name: Throat Culture [facility] 10/26 12:22 Order name: CT Soft Tissue Neck W/contr; Complete Time: 16:17 maksim Administered Medications: 12:55 Drug: NS 0.9% IV 1000 ml IV at 1 bolus Per protocol; 1000 mL bolus Route: IV; Rate: 1 ar6 bolus; Site: right antecubital; 14:18 Follow up: Response: No adverse reaction; IV Status: Completed infusion; IV Intake: ar6 1000ml 16:48 Follow up: Response: No adverse reaction; IV Status: Completed infusion; IV Intake: ar6 1000ml 16:25 Drug: Rocephin IV 1 grams IV at per protocol once; Given slow IV push per pharmacy ar6 instructions Route: IV; Rate: per protocol; Site: right antecubital; 16:40 Follow up: Response: No adverse reaction; IV Status: Completed infusion ar6 16:48 Follow up: Response: No adverse reaction; IV Status: Completed infusion ar6 16:25 Drug: Amoxicillin-Clavulanate PO 875 mg PO once Route: PO; ar6 16:40 Follow up: Response: No adverse reaction ar6 16:48 Follow up: Response: No adverse reaction ar6 Disposition Summary: 10/27/23 16:25 Discharge Ordered Notes: Location: Home [facility] Problem: new maksim Symptoms: have improved maksim Condition: Stable maksim Diagnosis - Sialoadenitis, unspecified maksim - Enlarged lymph nodes, unspecified maksim Followup: [facility] - With: Private Physician - When: 2 - 3 days - Reason: Recheck today's complaints, Continuance of care, Re-evaluation by your physician Discharge Instructions: - Discharge Summary Sheet [facility] - Salivary Gland Infection maksim - Lymphadenopathy [facility] Forms: - Medication Reconciliation Form [facility] - Antibiotic Education [facility] - Prescription Opioid Use [facility] - Patient Portal Instructions [facility] - Leadership Thank You Letter [facility] Prescriptions: - Augmentin 875-125 mg Oral Tablet - take 1 tablet ORAL route every 12 hours for 10 days; 20 tablet; Refills: 0, maksim Product Selection Permitted - Ibuprofen 600 mg Oral Tablet - take 1 tablet ORAL route every 6 hours As needed take with food; 30 tablet; [facility] Refills: 0, Product Selection Permitted Signatures: Dispatcher [employer] EDMS Otilio Wade MD MD cha Sims, Lauren, RN RN ld1 Britt Dolan, RN RN ar6 Corrections: (The following items were deleted from the chart) 12: 12:22 CBC+H.LAB.BRZ ordered. EDMS EDMS 12: 12:22 COMPREHENSIVE METABOLIC PANEL+C.LAB.BRZ ordered. EDMS EDMS 12: 12:22 Urinalysis+U.LAB.BRZ ordered. EDMS EDMS 12: 12:22 Test, Urine+UC.LAB.BRZ ordered. EDMS EDMS 13:47 13:47 Group A Streptococcus Rapid Sc+BA.LAB.BRZ ordered. EDMS EDMS 13:57 13:57 SARS-COV-2 Antigen Rapid+I.LAB.BRZ ordered. EDMS EDMS 13:57 13:57 Influenza Screen (A \T\ B)+BA.LAB.BRZ ordered. EDMS EDMS
--- NOTE | 2023-10-27 16:25 | ER ---
Nurse's Notes [facility] Name: Jazzmine Amin Age: 48 yrs Sex: Female : 1975 Arrival Date: 10/27/2023 Time: 12:16 Bed 9 Private MD: Diagnosis: Sialoadenitis, unspecified;Enlarged lymph nodes, unspecified Presentation: 10/26 12:28 Chief complaint: Patient states: Sore throat, neck swelling, headache, body aches X 2 ld1 days. Coronavirus screen: At this time, the client does not indicate any symptoms associated with coronavirus-19. Ebola Screen: No symptoms or risks identified at this time. Initial Sepsis Screen: Does the patient meet any 2 criteria? No. Patient's initial sepsis screen is negative. Does the patient have a suspected source of infection? No. Patient's initial sepsis screen is negative. Risk Assessment: Do you want to hurt yourself or someone else? Patient reports no desire to harm self or others. Onset of symptoms was October 27, 2023. 12:28 Method Of Arrival: Ambulatory ld1 12:28 Acuity: SANTO 4 ld1 Triage Assessment: 12:28 General: Appears in no apparent distress. comfortable, Behavior is calm, cooperative, ld1 appropriate for age. Pain: Denies pain. EENT: No signs and/or symptoms were reported regarding the EENT system. Neuro: Level of Consciousness is awake, alert, obeys commands, Oriented to person, place, time, situation, Appropriate for age. Cardiovascular: Capillary refill < 3 seconds Patient's skin is warm and dry. Respiratory: Airway is patent Respiratory effort is even, unlabored. GI: Abdomen is round non-distended. : No signs and/or symptoms were reported regarding the genitourinary system. Derm: No signs and/or symptoms reported regarding the dermatologic system. Musculoskeletal: No signs and/or symptoms reported regarding the musculoskeletal system. DELIVERY ASSOCIATE: 16:41 0, unknown ar6 Historical: - Allergies: 12:28 Topamax; ld1 - PMHx: 12:28 ADD/ADHD; Migraines; ld1 - PSHx: 12:28 section; ld1 - Immunization history:: Adult Immunizations up to date. - Infectious Disease History:: Denies. - Social history:: Smoking status: Patient denies any tobacco usage or history of. Screenin:34 [facility] ED Fall Risk Assessment (Adult) History of falling in the last 3 months, ar6 including since admission No falls in past 3 months (0 pts) Confusion or Disorientation No (0 pts) Intoxicated or Sedated No (0 pts) Impaired Gait No (0 pts) Mobility Assist Device Used No (0 pt) Altered Elimination No (0 pt) Score/Fall Risk Level 0 - 2 = Low Risk Oriented to surroundings, Maintained a safe environment, Educated pt \T\ family on fall prevention, incl call for assistance when getting out of bed, Hourly rounding (assess needs \T\ fall precautionary measures) done. Abuse screen: Denies threats or abuse. Denies injuries from another. Nutritional screening: No deficits noted. Tuberculosis screening: No symptoms or risk factors identified. Assessment: 12:34 General: Appears in no apparent distress. comfortable, Behavior is calm, cooperative, ar6 appropriate for age. Pain: Complains of pain in scalp Pain currently is 7 out of 10 on a pain scale. Neuro: Reports headache pt. reports hx of migraine headaches. Neuro: Level of Consciousness is awake, alert, obeys commands, Oriented to person, place, time, situation, Speech is normal, Facial symmetry appears normal, Pupils are PERRLA. Cardiovascular: Capillary refill < 3 seconds. Respiratory: Reports cough that is non-productive, dry, Airway is patent. GI: Abdomen is round non-distended, Patient currently denies diarrhea, nausea, vomiting. : No signs and/or symptoms were reported regarding the genitourinary system. EENT: Reports difficulty swallowing since yesterday; pt. reports walking in the rain and reports symptoms began this morning; pt. reports sore throat and swollen neck. Derm: Skin is intact, is healthy with good turgor, Skin is dry, Skin is pink, warm \T\ dry. Musculoskeletal:. Vital Signs: 12:28 Pulse 75; Resp 18; Temp 98.2(TE); Pulse Ox 99% on R/A; Weight 124.74 kg; Height 5 ft. 4 ld1 in. ; Pain 0/10; 12:34 BP 130 / 80; Pulse 78; Resp 18; Temp 98.3; Pulse Ox 100% ; Weight 79.38 kg; Height 5 ar6 ft. 4 in. ; Pain 7/10; 14:42 BP 146 / 89; Pulse 72; Resp 18; Pulse Ox 99% on R/A; ar6 16:39 BP 138 / 76; Pulse 77; Resp 18; Pulse Ox 100% on R/A; ar6 16:41 BP 130 / 77; Pulse 75; Resp 18; Pulse Ox 100% ; ar6 12:34 Body Mass Index 30.04 (79.38 kg, 162.56 cm) ar6 12:28 Pain Scale: Adult ld1 12:34 Pain Scale: Adult ar6 ED Course: 12:19 Patient arrived in ED. mr 12:20 Otilio Wade MD is Attending Physician. [facility] 12:28 Triage completed. ld1 12:28 Arm band placed on right wrist. ld1 12:34 Britt Dolan, RN is Primary Nurse. ar6 12:34 No apparent distress. ar6 12:34 Patient has correct armband on for positive identification. Bed in low position. Call ar6 light in reach. Side rails up X 1. Provided Education on: call light use. 12:34 No provider procedures requiring assistance completed. ar6 12:55 PREGU Sent. ar6 12:55 Urinalysis w/ reflexes Sent. ar6 12:55 Comprehensive Metabolic Panel Sent. ar6 12:55 CBC with Diff Sent. ar6 12:55 Inserted saline lock: 20 gauge in right antecubital area, using aseptic technique. ar6 Blood collected. Flushed with 10 mL NS. 13:45 Client placed on continuous cardiac and pulse oximetry monitoring. NIBP monitoring ar6 applied. Door closed. Noise minimized. Lights dimmed. Warm blanket given. Head of bed elevated. 14:18 Flu Sent. ar6 14:18 SARS RAPID Sent. ar6 14:18 Strep Sent. ar6 14:35 CT Soft Tissue Neck W/contr In Process Unspecified. EDMS 16:47 IV discontinued, intact, bleeding controlled, No redness/swelling at site. Pressure ar6 dressing applied. Administered Medications: 12:55 Drug: NS 0.9% IV 1000 ml IV at 1 bolus Per protocol; 1000 mL bolus Route: IV; Rate: 1 ar6 bolus; Site: right antecubital; 14:18 Follow up: Response: No adverse reaction; IV Status: Completed infusion; IV Intake: ar6 1000ml 16:48 Follow up: Response: No adverse reaction; IV Status: Completed infusion; IV Intake: ar6 1000ml 16:25 Drug: Rocephin IV 1 grams IV at per protocol once; Given slow IV push per pharmacy ar6 instructions Route: IV; Rate: per protocol; Site: right antecubital; 16:40 Follow up: Response: No adverse reaction; IV Status: Completed infusion ar6 16:48 Follow up: Response: No adverse reaction; IV Status: Completed infusion ar6 16:25 Drug: Amoxicillin-Clavulanate PO 875 mg PO once Route: PO; ar6 16:40 Follow up: Response: No adverse reaction ar6 16:48 Follow up: Response: No adverse reaction ar6 Medication: 12:34 VIS not applicable for this client. ar6 Intake: 14:18 IV: 1000ml; Total: 1000ml. ar6 16:48 IV: 1000ml; Total: 2000ml. ar6 Outcome: 16:25 Discharge ordered by . [facility] 16:41 Discharged to home ambulatory, ar6 16:41 Condition: good 16:41 Discharge instructions given to patient, Instructed on discharge instructions, follow up and referral plans. medication usage, Demonstrated understanding of instructions, follow-up care, medications, Prescriptions given X 2, 16:48 Patient left the ED. ar6 Signatures: Dispatcher [employer] EDMS Otilio Wade MD MD cha Rivera, Mary, Kashif Reg mr Ynes Russ, RN RN ld1 Britt Dolan RN RN ar6 Corrections: (The following items were deleted from the chart) 16:47 16:39 Condition: good ar6 ar6 16:47 16:39 Discharged to home ambulatory, ar6 ar6
[2023-10-27 17:03] VITALS: TEMP 98.3
[2023-10-27 17:14] VITALS: O2SAT 100
[2023-10-27 17:15] VITALS: BP 130/77
== END 2023-10-27 16:48 | disposition home or self-care (01) ==
LOC: ER 12:16
DX: K11.20 Sialoadenitis, unspecified (principal); Z11.52 Encounter for screening for COVID-19
CPT/HCPCS: 96361; 87070; 85025; 81001; 36415; 81025; 87081; 80053; 87804 ×2; 70491; 96374; 99284; 87811; Q9967; J7030; J0696

== ENCOUNTER 2023-12-16 09:31 | Emergency (ER) | payer BC ==
--- OUTSIDE RECORDS SUMMARY | 2023-12-16 09:34 | XMS REPORT | Continuity of Care Document ---
Author Name Unknown Address [address] [place] [address] [facility] thconnect Address [address] [place] [address] Care Team Providers Care Quarrying Specialist Name Role Phone JUAN A MARQUEZ Primary Care Physician Unavailab le [email or web address] Attending Clinician TIN Montano Attending Clinician Unavailable [...] NO KNOWN ALLERGIE S Drug Class Active [facility] Social History Smoking Status Start Date [...] 1 TABLET BY MOUTH IN THE MORNING [facility] duloxetine 60 mg capsule,del ayed release TAKE 1 CAPSULE BY MOUTH ONCE DAILY IN THE MORNING duloxetine 60 mg capsule,del ayed release TAKE 1 CAPSULE BY MOUTH ONCE DAILY IN THE MORNING No duloxetine 60 mg capsule,de layed release TAKE 1 CAPSULE BY MOUTH ONCE DAILY IN THE MORNING [facility] metronidazo le 500 mg tablet Take 1 tablet every 12 hours by oral route for 7 days. metronidazo le 500 mg tablet Take 1 tablet every 12 hours by oral route for 7 days. No 1 Q12H metronidaz ole 500 mg tablet Take 1 tablet every 12 hours by oral route for 7 days. [facility] Vital Signs Vital Name Observation Time Observation Value Comments S kraigce BMI (Body Mass Index) 2023-06-28 00:00:00 49.9 kg/m2 [facility] Body Weight 2023-06-28 00:00:00 291 [lb_av] [facility] Height 2023-06-28 00:00:00 64 [in_i] [facility] BP Systolic 2023-06-28 00:00:00 140 mm[Hg] [facility] BP Diastolic 2023-06-28 00:00:00 92 mm[Hg] [facility] Procedures Procedure Date / Time Performed Performing Clinicia n Source MAMMO, screening, digital, bilateral 2023-06-28 00:00[facility] 1999-02-20 00:00:00 [facility] Medical Section 1997-02-20 00:00:00 [facility] Plan of Care Planned Activity Planned Date Details Comments Source Diagnostic Test Pending 2023-06-28 00:00:00 pap, LB + HPV [code = pap, LB + HPV] [facility] Diagnostic Test Pending 2023-06-28 00:00:00 infectious disease panel [code = infectious disease panel] [facility] Encounters Start Date/Time End Date/Time Encounter Type Admission Type Attending Clinicians Care Facility Care Department Encounter ID Source 2023-06-28 00:00:00 2023-06-28 00:00:00 Ninoska Chatman, PLASTIC MIXER: [address], [facility] [address], [place] [address] , Ph. [facility] - [email or web address] charlie Matt* [id number] [facility] 2022-12-16 00:00:00 2022-12-16 00:00:00 Outpatient [email or web address] [email or web address]_S [facility] [id number] [facility] 2019-02-11 14:46:54 2019-02-11 16:26:00 Emergency X [facility] ERT [id number] [facility] Results Test Description Test Time Test Comments Results Resul t Comments Source infectious disease panel 2023-06-28 04:44:[address] [facility]
[2023-12-16] MEDS ORDERED: dexAMETHasone 10 MG/ML VIAL ONE (09:52)
[2023-12-16] MEDS ORDERED: KETOROLAC 30 MG/ML INJ ONE (09:52)
[2023-12-16] MEDS ORDERED: DIPHENHYDRAMINE 50 MG/ML VIAL ONE (09:52)
[2023-12-16] MEDS ORDERED: METOCLOPRAMIDE 10 MG/2mL INJ ONE (09:53)
[2023-12-16] MEDS ORDERED: NA CHLORIDE 0.9% 1,000 ML ONE (09:53)
[2023-12-16 10:21] LABS: Absolute Basophils 0.1 K/uL (0-0.5); Absolute Eosinophils 0.2 K/uL (0-0.5); Absolute Lymphocytes (CBC) 1.7 K/uL (0.7-4.9); Absolute Monocytes 0.7 K/uL (0.1-1.3); Absolute Neutrophil 5.6 K/uL (1.8-8.0); Basophils % 0.8 % (0-1.3); Eosinophils % 2.1 % (0-4.4); Hematocrit 40.4 % (36.0-45.0); Hemoglobin 13.1 g/dL (12.0-15.0); Lymphocytes % 20.5 % (15.3-44.8); MCH 28.4 pg (27.0-35.0); MCHC 32.6 g/dL (32.0-36.0); MCV 87.1 fL (80-100); MPV 8.7 fL (7.6-11.3); Monocytes % 8.7 % (3.3-12.3); Neutrophils % 67.9 % (41.7-73.7); Platelets 320 thou/uL (152-406); RBC Red Blood Cell Count 4.63 M/uL (3.86-4.86); Red Cell Distribution Width 13.6 % (12.1-15.2)
[2023-12-16 10:21] LABS: Specific Gravity > 1.030 (1.005-1.030)
[2023-12-16 10:23] LABS: Specific Gravity > 1.030 (1.005-1.030); Urine Bacteria <20 /HPF (<20); Urine Bilirubin NEGATIVE (Negative); Urine Blood Negative (Negative); Urine Clarity Turbid (Clear); Urine Color Yellow (Yellow); Urine Crystals Unidentified Few /HPF (None Seen); Urine Culture Reflex Order NOT NEEDED; Urine Glucose NEGATIVE (Negative); Urine Ketones NEGATIVE (Negative); Urine Microscopic Reflex YN ORDER UMIC; Urine Mucus 1+ /HPF (None Seen); Urine Nitrite NEGATIVE (Negative); Urine Protein TRACE (Negative); Urine RBC <5 /HPF (None Seen); Urine Urobilinogen Normal (Normal); Urine WBC <5 /HPF (<5); Urine WBC Clump Rare /HPF (None Seen); Urine pH 5.5 (5.0-7.0)
[2023-12-16 10:35] LABS: Albumin 3.8 g/dL (3.4-5.0); Anion Gap 8.9 mEq/L (5.0-15.0); Bilirubin Total 0.5 mg/dL (0.2-1.0); Globulin 3.9 g/dL (2.3-3.5); Potassium 3.9 mEq/L (3.5-5.1); Protein, Total 7.7 g/dL (6.4-8.2)
--- NOTE | 2023-12-16 11:43 | RAD REPORT ---
EXAMINATION: ONE VIEW CHEST XR CLINICAL INDICATION: Female, 48 years old.,CHEST PAIN TECHNIQUE: Frontal chest projection is submitted. Examination is limited by patient positioning and t echnique. COMPARISON: 05/30/2019 FINDINGS: The lungs are well inflated and clear. No pneumothorax or sizable effusion. The heart is upper limit of normal in size. Right rib deformity, stable, may suggest healing acute fracture. IMPRESSION: No acute intrathoracic abnormalities. Stable findings as above.
--- NOTE | 2023-12-16 12:01 | ER ---
Nurse's Notes [facility] Name: Jazzmine Amin Age: 48 yrs Sex: Female : 1975 Arrival Date: 12/16/2023 Time: 09:31 Bed 4 Private MD: Diagnosis: Migraine without aura, not intractable Presentation: 12/15 09:53 Chief complaint: Patient states: TELLES that began Monday. Pt reports she is under a lot of stress. HX of migraines. Coronavirus screen: Client denies travel out of the [place] in the last 14 days. Ebola Screen: Patient denies exposure to infectious person. Patient denies travel to an Ebola-affected area in the 21 days before illness onset. Initial Sepsis Screen: Does the patient meet any 2 criteria? No. Patient's initial sepsis screen is negative. Does the patient have a suspected source of infection? No. Patient's initial sepsis screen is negative. Risk Assessment: Do you want to hurt yourself or someone else? Patient reports no desire to harm self or others. Onset of symptoms was December 11, 2023. 09:53 Method Of Arrival: Ambulatory ss 09:53 Acuity: SANTO 3 ss Triage Assessment: 10:38 Headache History: The patient has had previous headaches and this one is similar to ph previous episodes. General: Appears in no apparent distress. Behavior is calm, cooperative. Pain: Complains of pain in head and chest Pain currently is 7 out of 10 on a pain scale. Pain began 2-3 days ago. Also complains of nausea. Historical: - Allergies: 09:59 Topamax; ss - PMHx: 09:59 ADD/ADHD; Migraines; ss - PSHx: 09:59 section; ss - Immunization history:: Client reports receiving the 2nd dose of the Covid vaccine. - Infectious Disease History:: Denies. - Social history:: Smoking status: Reported history of juuling and/or vaping. Screenin:09 [facility] ED Fall Risk Assessment (Adult) History of falling in the last 3 months, including since admission No falls in past 3 months (0 pts) Confusion or Disorientation No (0 pts) Intoxicated or Sedated No (0 pts) Impaired Gait No (0 pts) Mobility Assist Device Used No (0 pt) Altered Elimination No (0 pt) Score/Fall Risk Level 0 - 2 = Low Risk Oriented to surroundings, Maintained a safe environment, Hourly rounding (assess needs \T\ fall precautionary measures) done. Abuse screen: Denies threats or abuse. Denies injuries from another. Nutritional screening: No deficits noted. Tuberculosis screening: No symptoms or risk factors identified. Assessment: 10:00 General: Appears in no apparent distress. Behavior is calm, cooperative. Pain: ph Complains of pain in head and chest. Neuro: Level of Consciousness is awake, alert, obeys commands, Oriented to person, place, time, situation, Reports headache frontal area, photophobia. Cardiovascular: Reports chest pain, Capillary refill < 3 seconds in bilateral fingers Patient's skin is warm and dry. Rhythm is sinus rhythm Chest pain is located in substernal area. Respiratory: Airway is compromised Respiratory effort is even, unlabored. GI: Reports nausea, vomiting, Patient currently denies abdominal pain. Derm: Skin is pink, warm \T\ dry. Vital Signs: 09:53 BP 130 / 79; Pulse 79; Resp 14; Temp 98.5(O); Pulse Ox 96% on R/A; Height 5 ft. 4 in. ; ss Pain 6/10; 11:40 BP 117 / 88; Pulse 75; Resp 18; Pulse Ox 96% on R/A; ph 12:15 BP 121 / 81; Pulse 71; Resp 16; Pulse Ox 99% ; bp 09:53 Pain Scale: Adult ss Bethany Coma Score: 12:00 Eye Response: spontaneous(4). Motor Response: obeys commands(6). Verbal Response: kb oriented(5). Total: 15. ED Course: 09:37 Patient arrived in ED. sj2 09:38 Ines Matt FNP-C is [facility]. kb 09:38 Otilio Wade MD is Attending Physician. kb 09:49 Gokul Bourgeois, MARBELLA is Primary Nurse. bp 09:59 Triage completed. ss 09:59 Arm band placed on right wrist. ss 10:10 Initial lab(s) drawn, by ri, sent to lab. Urine collected: clean catch specimen, clear, ph EKG done, by ED staff, reviewed by Ines GARCIA. Inserted saline lock: 20 gauge in right antecubital area, using aseptic technique. Blood collected. Flushed with 10 mL NS. 10:13 Troponin High Sensitivity Sent. ph 10:13 CBC with Diff Sent. ph 10:13 CMP Sent. ph 10:13 Lipase Sent. ph 10:13 Test, Urine Sent. ph 10:14 Urinalysis w/ reflexes Sent. ph 10:38 Patient has correct armband on for positive identification. Placed in gown. Bed in low ph position. Call light in reach. Side rails up X 1. Pulse ox on. NIBP on. Door closed. Noise minimized. Lights dimmed. Warm blanket given. Pillow given. 10:38 No provider procedures requiring assistance completed. ph 10:40 Chest Single View XRAY In Process Unspecified. EDMS 12:15 IV discontinued, intact, bleeding controlled, No redness/swelling at site. Pressure bp dressing applied. Administered Medications: 10:15 Drug: TORadol - Ketorolac IVP 15 mg IVP once Route: IVP; Site: right antecubital; ph 10:36 Follow up: Response: No adverse reaction ph 10:15 Drug: NS 0.9% IV 1000 ml IV at 1 bolus Per protocol; to be given as a bolus over 60 ph minutes Route: IV; Rate: 1 bolus; Site: right antecubital; 12:09 Follow up: Response: No adverse reaction; IV Status: Completed infusion; IV Intake: ph 1000ml 10:15 Drug: Decadron - Dexamethasone IVP 10 mg IVP once Route: IVP; Site: right antecubital; ph 10:36 Follow up: Response: No adverse reaction ph 10:15 Drug: metoCLOPramide IVP 10 mg IVP once; over 1 to 2 minutes Route: IVP; Site: right ph antecubital; 10:36 Follow up: Response: No adverse reaction ph 10:15 Drug: diphenhydrAMINE IVP 12.5 mg IVP once Route: IVP; Site: right antecubital; ph 10:36 Follow up: Response: No adverse reaction ph Medication: 10:38 VIS not applicable for this client. ph Intake: 12:09 IV: 1000ml; Total: 1000ml. ph Outcome: 12:01 Discharge ordered by MD. costello 12:15 Discharged to home ambulatory, bp 12:15 Condition: stable 12:15 Discharge instructions given to patient, Instructed on discharge instructions, follow up and referral plans. Demonstrated understanding of instructions, follow-up care, 12:16 Patient left the ED. bp Signatures: Dispatcher [employer] EDMS Ines Matt, JOSE POLANCO-Heather Max RN RN Slime Jorgensen RN RN Gokul Bourgeois RN RN bp Adina Muller 2 Corrections: (The following items were deleted from the chart) 10:36 10:35 Decadron - Dexamethasone IVP 10 mg IVP in right antecubital ph ph 10:36 10:35 metoCLOPramide IVP 10 mg IVP in right antecubital ph ph 10:36 10:35 diphenhydrAMINE IVP 12.5 mg IVP in right antecubital ph ph 10:36 10:35 NS 0.9% IV 1000 ml IV at 1 bolus in right antecubital ph ph 10:36 10:35 TORadol - Ketorolac IVP 15 mg IVP in right antecubital ph ph
--- NOTE | 2023-12-16 12:01 | EDPHYS ---
Physician Documentation [facility] Name: Jazzmine Amin Age: 48 yrs Sex: Female : 1975 Arrival Date: 12/16/2023 Time: 09:31 Bed 4 Private MD: ED Physician Otilio Wade HPI: 12/15 09:42 This 48 yrs old Female presents to ER via Unassigned with complaints of Headache. kb 09:42 Pt is a 48 year old female who presents for migraine that started 6 days ago. States kb the head pain is similar to previous migraines. Also reports abd pain, chest pain and dry heaving that started today. states she is under a lot of stress right now so that could be making everything worse. Denies fever, diarrhea, vomiting. . Historical: - Allergies: 09:59 Topamax; ss - PMHx: 09:59 ADD/ADHD; Migraines; ss - PSHx: 09:59 section; ss - Immunization history:: Client reports receiving the 2nd dose of the Covid vaccine. - Infectious Disease History:: Denies. - Social history:: Smoking status: Reported history of juuling and/or vaping. ROS: 09:42 Constitutional: As per HPI kb Exam: 09:44 Constitutional: This is a well developed, well nourished patient who is awake, alert, kb and in no acute distress. Head/Face: Normocephalic, atraumatic. ENT: Moist Mucous membranes Cardiovascular: Regular rate Respiratory: Respirations even and unlabored. No increased work of breathing. Talking in full sentences Abdomen/GI: Soft, non-tender. No distention Skin: Warm, dry with normal turgor. Normal color. MS/ Extremity: Pulses equal, no cyanosis. Neurovascular intact. Full, normal range of motion. Neuro: Awake and alert, GCS 15, oriented to person, place, time, and situation. 10:24 ECG was reviewed by the Attending Physician. kb Vital Signs: 09:53 BP 130 / 79; Pulse 79; Resp 14; Temp 98.5(O); Pulse Ox 96% on R/A; Height 5 ft. 4 in. ; ss Pain 6/10; 11:40 BP 117 / 88; Pulse 75; Resp 18; Pulse Ox 96% on R/A; ph 12:15 BP 121 / 81; Pulse 71; Resp 16; Pulse Ox 99% ; bp 09:53 Pain Scale: Adult ss Nacho Coma Score: 12:00 Eye Response: spontaneous(4). Motor Response: obeys commands(6). Verbal Response: kb oriented(5). Total: 15. MDM: 09:38 Medical Screening Exam initiated kb 09:44 Data reviewed: vital signs, nurses notes. kb 09:45 ED course: Pt denies any abd tenderness, states she just feels nauseous. States the kb pain in her chest started after a lot of dry heaving. . 12:00 Differential diagnosis: cluster headache, migraine, tension headache, dehydration, kb arrhythmia, acute mi. Counseling: I had a detailed discussion with the patient and/or guardian regarding the historical points, exam findings, and any diagnostic results supporting the discharge/admit diagnosis, lab results, radiology results, the need for outpatient follow up, a family practitioner, to return to the emergency department if symptoms worsen or persist or if there are any questions or concerns that arise at home. Response to treatment: the patient's symptoms have resolved after treatment. 12/15 09:47 Order name: CBC with Diff; Complete Time: 11:02 kb 12/15 09:47 Order name: CMP; Complete Time: 11:02 kb 12/15 09:47 Order name: Lipase; Complete Time: 11:02 kb 12/15 09:47 Order name: Test, Urine; Complete Time: 10:32 kb 12/15 09:47 Order name: Urinalysis w/ reflexes; Complete Time: 10:32 kb 12/15 09:47 Order name: Troponin High Sensitivity; Complete Time: 11:02 kb 12/15 09:47 Order name: Chest Single View XRAY; Complete Time: 11:46 kb 12/15 09:47 Order name: EKG; Complete Time: 09:48 kb 12/15 09:47 Order name: IV Saline Lock; Complete Time: 10:13 kb 12/15 09:47 Order name: Labs collected and sent; Complete Time: 10:13 kb 12/15 09:47 Order name: EKG - Nurse/Tech; Complete Time: 10:13 kb EC:24 Rate is 85 beats/min. Rhythm is regular. QRS Chancellor is Normal. VA interval is normal at kb 182 msec. QRS interval is normal at 84 msec. QT interval is normal at 473 msec. Administered Medications: 10:15 Drug: TORadol - Ketorolac IVP 15 mg IVP once Route: IVP; Site: right antecubital; ph 10:36 Follow up: Response: No adverse reaction ph 10:15 Drug: NS 0.9% IV 1000 ml IV at 1 bolus Per protocol; to be given as a bolus over 60 ph minutes Route: IV; Rate: 1 bolus; Site: right antecubital; 12:09 Follow up: Response: No adverse reaction; IV Status: Completed infusion; IV Intake: ph 1000ml 10:15 Drug: Decadron - Dexamethasone IVP 10 mg IVP once Route: IVP; Site: right antecubital; ph 10:36 Follow up: Response: No adverse reaction ph 10:15 Drug: metoCLOPramide IVP 10 mg IVP once; over 1 to 2 minutes Route: IVP; Site: right ph antecubital; 10:36 Follow up: Response: No adverse reaction ph 10:15 Drug: diphenhydrAMINE IVP 12.5 mg IVP once Route: IVP; Site: right antecubital; ph 10:36 Follow up: Response: No adverse reaction ph Disposition Summary: 12/16/23 12:01 Discharge Ordered Notes: Location: Home kb Condition: Stable kb Diagnosis - Migraine without aura, not intractable kb Followup: kb - With: Emergency Department - When: As needed - Reason: Worsening of condition Followup: kb - With: Private Physician - When: 2 - 3 days - Reason: Recheck today's complaints, Continuance of care, Re-evaluation by your physician Discharge Instructions: - Discharge Summary Sheet kb - Migraine Headache, [id number] kb Forms: - Medication Reconciliation Form kb - Antibiotic Education kb - Prescription Opioid Use kb - Patient Portal Instructions kb - Leadership Thank You Letter kb Signatures: Dispatcher [employer] Ines Polanco FNP-C FNP-Heather Max, MARBELLA RN Slime Jorgensen RN RN ph
[2023-12-16 21:39] VITALS: TEMP 98.5
[2023-12-16 21:40] VITALS: BP 121/81; O2SAT 99
--- NOTE | 2023-12-17 15:04 | EKG ---
Test Date: 2023-12-16 Test Time: 10:07:49 City Carrier: AM MEASUREMENT RESULTS: Intervals: Rate: 85 PA: 182 QRSD: 84 QT: 398 QTc: 473 [place]: P: 41 PA: 182 QRS: -4 T: 2 INTERPRETIVE STATEMENTS: Normal sinus rhythm Inferior infarct, age undetermined Cannot rule out Anterior infarct, age undetermined Abnormal ECG Compared to ECG 09/24/2011 09:22:18 Myocardial infarct finding now present Sinus bradycardia no longer present Electronically Signed On 12-17-23 15:03:22 CDT by Arnoldo Obando
== END 2023-12-16 12:16 | disposition home or self-care (01) ==
LOC: ER 09:31
DX: G43.009 Migraine without aura, not intractable, without status migrainosus (principal)
CPT/HCPCS: 93005; 85025; 81001; 36415; 81025; 84484; 83690; 80053; 71045; J2765; J1200; J1100; J7030; 96361; 96374; 96375; 99284

== ENCOUNTER 2024-02-18 06:17 | Emergency (ER) | payer BC ==
--- OUTSIDE RECORDS SUMMARY | 2024-02-18 06:20 | XMS REPORT | Continuity of Care Document ---
Author Name Unknown Address [address] [place] [address] [facility] thconnect Address [address] 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 Social History Smoking Status Start Date [...] 1 TABLET BY MOUTH IN THE MORNING [facility] duloxetine 60 mg capsule,del ayed release TAKE 1 CAPSULE BY MOUTH ONCE DAILY IN THE MORNING duloxetine 60 mg capsule,del ayed release TAKE 1 CAPSULE BY MOUTH ONCE DAILY IN THE MORNING No duloxetine 60 mg capsule,de layed release TAKE 1 CAPSULE BY MOUTH ONCE DAILY IN THE MORNING [facility] metronidazo le 500 mg tablet Take 1 tablet every 12 hours by oral route for 7 days. metronidazo le 500 mg tablet Take 1 tablet every 12 hours by oral route for 7 days. No 1 Q12H metronidaz ole 500 mg tablet Take 1 tablet every 12 hours by oral route for 7 days. [facility] Vital Signs Vital Name Observation Time Observation Value Comments S kraigce BMI (Body Mass Index) 2023-06-28 00:00:00 49.9 kg/m2 [facility] Body Weight 2023-06-28 00:00:00 291 [lb_av] [facility] Height 2023-06-28 00:00:00 64 [facility] BP Systolic 2023-06-28 00:00:00 140 mm[Hg] [facility] Medical BP Diastolic 2023-06-28 00:00:00 92 mm[Hg] [facility] Procedures Procedure Date / Time Performed Performing Clinicia n Source MAMMO, screening, digital, bilateral 2023-06-28 00:00[facility] 1999-02-[facility] 00:00:00 [facility] Medical Section 1997-02-20 00:00:00 [facility] Plan of Care Planned Activity Planned Date Details Comments Source Diagnostic Test Pending 2023-06-28 00:00:00 pap, LB + HPV [code = pap, LB + HPV] [facility] Diagnostic Test Pending 2023-06-28 00:00:00 infectious disease panel [code = infectious disease panel] [facility] Encounters Start Date/Time End Date/Time Encounter Type Admission Type Attending Clinicians Care Facility Care Department Encounter ID Source 2023-06-28 00:00:00 2023-06-28 00:00:00 Ninoska Chatman, CABLE STRETCHER AND TESTER: [address], [facility] [address], [place] [address] , Ph. [facility] - [email or web address] charlie Matt* [id number] [facility] 2022-12-16 00:00:00 2022-12-16 00:00:00 Outpatient [email or web address]_S [facility] [id number] [facility] 2019-02-11 14:46:54 2019-02-11 16:26:00 Emergency X [facility] ERT [id number] [facility] Results Test Description Test Time Test Comments Results Resul t Comments Source infectious disease panel 2023-06-28 04:44:00 Abnormal Status [facility]
[2024-02-18] MEDS ORDERED: ACETAMINOPHEN 500 MG TAB ONE (06:41)
[2024-02-18] MEDS ORDERED: ALBUTEROL 2.5 MG/3 ML NEB SOL ONE (06:43)
[2024-02-18] MEDS ORDERED: GUAIFENESIN/DM 5 ML UCUP ONE (06:44)
[2024-02-18] MEDS ORDERED: IBUPROFEN 400 MG TAB ONE (06:44)
[2024-02-18 07:13] LABS: SARS-CoV-2 Antigen CONTROL BLUE LINE VIS/BG OK; SARS-CoV-2 Antigen Rapid Res Negative (Negative)
--- NOTE | 2024-02-18 07:31 | RAD REPORT ---
EXAM: Chest Single View HISTORY: COPD COMPARISON: 02/18/2024 FINDINGS: LUNGS/PLEURA: The lungs are clear. No pleural effusions or pneumothorax. No pulmonary edema. Relative opacification at the lung bases likely due to overlapping soft tissue. MEDIASTINUM: The mediastinal silhouette is within normal limits. CARDIAC: Within normal limits. UPPER ABDOMEN: No significant abnormality. BONES: No acute fracture. LINES/TUBES/OTHER: N/A IMPRESSION: No definite evidence of acute cardiopulmonary disease. Hazy opacities in lung bases favored to be rel ated to underpenetration due to body habitus. A standard PA and lateral may be able to better evaluate.
--- NOTE | 2024-02-18 09:03 | EDPHYS ---
Physician Documentation [facility] Name: Jazzmine Amin Age: 48 yrs Sex: Female : 1975 Arrival Date: 02/18/2024 Time: 06:17 Bed 12 Private MD: ED Physician Edmond Phan HPI: 02/17 07:14 This 48 yrs old Female presents to ER via Ambulatory with complaints of Headache, Cough.rn 07:15 The patient or guardian reports cough, flu symptoms. Onset: The symptoms/episode rn began/occurred 3 day(s) ago. Severity of symptoms: At their worst the symptoms were mild, in the emergency department the symptoms are unchanged. Modifying factors: The symptoms are alleviated by nothing, the symptoms are aggravated by nothing. The patient has not experienced similar symptoms in the past. The patient has not recently seen a physician. Patient reports 2 to 3 days of cough, congestion, sore throat, headache, fever and malaise. Patient has chronic migraines and feels like this is making headache worse. Works at [employer], multiple sick contacts. No neck stiffness. No abdominal pain.. 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 Flu vaccine is not up to date. - Infectious Disease History:: Denies. - Social history:: Smoking status: Patient denies any tobacco usage or history of. - Family history:: not pertinent. - Hospitalizations: : No recent hospitalization is reported. ROS: 07:15 Constitutional: Positive for subjective fever ENT: Positive for congestion and sore rn throat Cardiovascular: Negative for chest pain, palpitations, and edema, Respiratory: Positive for cough, negative for shortness of breath Abdomen/GI: Positive for nausea and dry heaving, no abdominal pain MS/Extremity: Negative for injury and deformity, Skin: Negative for injury, rash, and discoloration, Neuro: Positive for headache and generalized weakness Exam: 07:15 Constitutional: This is a well developed, well nourished patient who is awake, alert, rn and in no acute distress. Head/Face: Normocephalic, atraumatic. ENT: Mild pharyngeal erythema with mild uvula swelling, no stridor Neck: Tender anterior cervical lymphadenopathy. No meningismus Cardiovascular: Tachycardic, regular Respiratory: No increased work of breathing, no retractions or nasal flaring. Abdomen/GI: Soft, non-tender Neuro: Awake and alert, GCS 15 Vital Signs: 06:26 BP 170 / 97; Pulse 105; Resp 20; Temp 99.9; Pulse Ox 98% ; Weight 113.4 kg; Height 5 vc1 ft. 4 in. ; Pain 7/10; 06:26 Body Mass Index 42.91 (113.40 kg, 162.56 cm) vc1 06:26 Pain Scale: Adult vc1 MDM: 06:33 Medical Screening Exam initiated ec2 09:02 Differential Diagnosis: Bronchitis Influenza Upper Respiratory Infection Viral Syndrome rn Pneumonia. Data reviewed: vital signs, nurses notes, lab test result(s), radiologic studies, plain films, and as a result, I will discharge patient. Counseling: I had a detailed discussion with the patient and/or guardian regarding the historical points, exam findings, and any diagnostic results supporting the discharge/admit diagnosis, lab results, radiology results, the need for outpatient follow up, to return to the emergency department if symptoms worsen or persist or if there are any questions or concerns that arise at home. Response to treatment: the patient's symptoms have mildly improved after treatment, and as a result, I will discharge patient. 09:03 Special discussion: I discussed with the patient/guardian in detail that at this point rn there is no indication for admission to the hospital. It is understood, however, that if the symptoms persist or worsen the patient needs to return immediately for re-evaluation. 02/17 06:36 Order name: Strep vc1 02/17 06:36 Order name: SARS RAPID; Complete Time: 07:14 vc1 02/17 06:36 Order name: Flu; Complete Time: 07:14 vc1 02/17 07:17 Order name: Throat Culture EDMS 02/17 06:36 Order name: CXR XRAY; Complete Time: 07:36 vc1 Administered Medications: 06:49 Drug: Acetaminophen PO 1000 mg PO once Route: PO; vc1 06:49 Drug: Dextromethorphan-Guaifenesin PO Liquid 10 mg-100 mg/5 mL 10 ml PO once Route: PO; vc1 06:49 Drug: Ibuprofen PO 800 mg PO once Route: PO; vc1 06:50 Drug: Albuterol Inhalation 2.5 mg Inhalation once Route: Inhalation; vc1 Disposition Summary: 02/18/24 09:03 Discharge Ordered Notes: Location: Home rn Problem: new rn Symptoms: have improved rn Condition: Stable rn Diagnosis - Cough rn Followup: rn - With: Private Physician - When: As needed - Reason: Recheck today's complaints, Re-evaluation by your physician Discharge Instructions: - Discharge Summary Sheet rn Forms: - Medication Reconciliation Form rn - 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 Day 2, 3, 4 , 5 take one (1) tablet once daily.; 6 tablet; Refills: 0, Product Selection Permitted Signatures: Dispatcher [employer] Edmond Washington MD MD rn Calcote, Vanessa, RN RN vc1 Sarthak Amanda MD MD ec2
--- NOTE | 2024-02-18 09:03 | ER ---
Nurse's Notes [facility] Name: Jazzmine Amin Age: 48 yrs Sex: Female : 1975 Arrival Date: 02/18/2024 Time: 06:17 Bed 12 Private MD: Diagnosis: Cough Presentation: 02/17 06:26 Chief complaint: Patient states: Headache, dry heaving, cough, cold chills, wheezing in vc1 chest. Coronavirus screen: Client denies travel out of the [place] in the last 14 days. chills, congestion, cough unrelated to allergies, fever, sore throat, Client presents with at least one sign or symptom that may indicate coronavirus-19. Ebola Screen: Patient negative for fever greater than or equal to 101.5 degrees Fahrenheit, and additional compatible Ebola Virus Disease symptoms Patient denies exposure to infectious person. Patient denies travel to an Ebola-affected area in the 21 days before illness onset. No symptoms or risks identified at this time. Initial Sepsis Screen: Does the patient meet any 2 criteria? HR > 90 bpm. No. Patient's initial sepsis screen is negative. Does the patient have a suspected source of infection? No. Patient's initial sepsis screen is negative. Risk Assessment: Do you want to hurt yourself or someone else? Patient reports no desire to harm self or others. Onset of symptoms was February 15, 2024. Care prior to arrival: Medication(s) given: Emergen-C Robitussin. Activity prior to arrival: None. Mechanism of Injury: No Mechanism of Injury. 06:26 Method Of Arrival: Ambulatory vc1 06:26 Acuity: SANTO 4 vc1 Triage Assessment: :29 General: Appears in no apparent distress. uncomfortable, ill, obese, well developed, vc1 well nourished, Behavior is calm, cooperative, appropriate for age. Pain: Complains of pain in forehead, left occipital area and right occipital area Pain does not radiate. EENT: Reports nasal congestion pain when swallowing. Neuro: Level of Consciousness is awake, alert, obeys commands, Oriented to person, place, time, situation, Appropriate for age. Cardiovascular: Capillary refill < 3 seconds Patient's skin is warm and dry. Respiratory: Reports cough that is non-productive, "wheezing" Airway is patent Respiratory effort is even, unlabored, Respiratory pattern is regular, symmetrical. GI: Reports nausea, "Dry heaving". : No deficits noted. No signs and/or symptoms were reported regarding the genitourinary system. Derm: Skin is intact, is healthy with good turgor, Skin is dry, Skin is normal, Skin temperature is warm. Musculoskeletal: Circulation, motion, and sensation intact. Range of motion: intact in all extremities. 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 Flu vaccine is not up to date. - Infectious Disease History:: Denies. - Social history:: Smoking status: Patient denies any tobacco usage or history of. - Family history:: not pertinent. - Hospitalizations: : No recent hospitalization is reported. Screenin:29 Abuse screen: Denies threats or abuse. Nutritional screening: No deficits noted. vc1 Tuberculosis screening: No symptoms or risk factors identified. 06:30 [facility] ED Fall Risk Assessment (Adult) History of falling in the last 3 months, vc1 including since admission No falls in past 3 months (0 pts) Confusion or Disorientation No (0 pts) Intoxicated or Sedated No (0 pts) Impaired Gait No (0 pts) Mobility Assist Device Used No (0 pt) Altered Elimination No (0 pt) Score/Fall Risk Level 0 - 2 = Low Risk Oriented to surroundings, Maintained a safe environment, Educated pt \\T\\ family on fall prevention, incl call for assistance when getting out of bed. Assessment: 09:24 Reassessment: Patient appears in no apparent distress at this time. Patient and/or ss family updated on plan of care and expected duration. Pain level reassessed. Patient states feeling better. Patient states symptoms have improved. Vital Signs: 06:26 BP 170 / 97; Pulse 105; Resp 20; Temp 99.9; Pulse Ox 98% ; Weight 113.4 kg; Height 5 vc1 ft. 4 in. ; Pain 7/10; 06:26 Body Mass Index 42.91 (113.40 kg, 162.56 cm) vc1 06:26 Pain Scale: Adult vc1 ED Course: 06:20 Patient arrived in ED. jj6 06:28 Triage completed. vc1 06:28 Arm band placed on left wrist. vc1 06:41 Strep Sent. vc1 06:41 Flu Sent. vc1 06:41 SARS RAPID Sent. vc1 06:50 Strep Sent. vc1 06:50 Flu Sent. vc1 06:50 SARS RAPID Sent. vc1 06:59 Edmond Phan MD is Attending Physician. rn 07:27 CXR XRAY In Process Unspecified. EDMS 07:41 Heather Leary, MARBELLA is Primary Nurse. ss 09:24 No provider procedures requiring assistance completed. Patient did not have IV access ss during this emergency room visit. Administered Medications: 06:49 Drug: Acetaminophen PO 1000 mg PO once Route: PO; vc1 06:49 Drug: Dextromethorphan-Guaifenesin PO Liquid 10 mg-100 mg/5 mL 10 ml PO once Route: PO; vc1 06:49 Drug: Ibuprofen PO 800 mg PO once Route: PO; vc1 06:50 Drug: Albuterol Inhalation 2.5 mg Inhalation once Route: Inhalation; vc1 Medication: 06:31 VIS not applicable for this client. vc1 Outcome: 09:03 Discharge ordered by . rn 09:24 Discharged to home ambulatory, ss 09:24 Condition: good 09:24 Discharge instructions given to patient, Instructed on discharge instructions, follow up and referral plans. medication usage, Demonstrated understanding of instructions, follow-up care, medications, Prescriptions given X 2, 09:25 Patient left the ED. ss Signatures: Dispatcher [employer] EDGA Edmond Phan MD MD rn Blanchard, Shelby, MARBELLA RN Destinee Dalton jj6 Elif De La Garza RN RN vc1
[2024-02-18 09:30] VITALS: BP 170/97; TEMP 99.9; O2SAT 98
== END 2024-02-18 09:25 | disposition home or self-care (01) ==
LOC: ER 06:17
DX: R05.9 Cough, unspecified (principal); R51.9 Headache, unspecified; R53.1 Weakness; Z11.52 Encounter for screening for COVID-19
CPT/HCPCS: 87070; 36415; 87081; 87804 ×2; 71045; 99284; 87811; J7613

== ENCOUNTER 2024-09-26 01:17 | Observation (INO) | payer BC, MEDICARE ==
[2024-09-26] MEDS ORDERED: ONDANSETRON 4 MG/2 ML VIAL ONE (01:44)
[2024-09-26] MEDS ORDERED: NA CHLORIDE 0.9% 1,000 ML ONE ×2 (01:45→08:41)
[2024-09-26] MEDS ORDERED: MORPHINE 4 MG/ML SYR ONE (01:45)
[2024-09-26 02:03] LABS: Absolute Lymphocytes (CBC) 0.8 K/uL (0.7-4.9); Hematocrit 45.0 % (36.0-45.0); Hemoglobin 15.1 g/dL (12.0-15.0); MCH 29.1 pg (27.0-35.0); MCHC 33.6 g/dL (32.0-36.0); MCV 86.5 fL (80-100); MPV 9.3 fL (7.6-11.3); Nucleated RBC Absolute Count 0.0 (0-0); Nucleated Red Blood Cells % 0.0 % (0-0); RBC Red Blood Cell Count 5.20 M/uL (3.86-4.86); White Blood Count 15.60 thou/uL (4.3-10.9)
[2024-09-26 02:26] LABS: ALT/SGPT 48.0 U/L (13-56); AST/SGOT 29.0 U/L (15-37); Albumin 3.8 g/dL (3.4-5.0); Albumin/Globulin Ratio 0.9 (1.1-1.8); Alkaline Phosphatase 115.0 U/L (45-117); Anion Gap 9.7 mEq/L (5.0-15.0); BUN Blood Urea Nitrogen 15.0 mg/dL (7-18); Globulin 4.1 g/dL (2.3-3.5); Glucose Level 133.0 mg/dL (74-106); Lipase 31.0 U/L (13-75); Potassium 3.7 mEq/L (3.5-5.1)
[2024-09-26 02:31] LABS: Differential Total Cells Count 100; Segmented Neutrophils 59 % (40-80)
[2024-09-26 02:32] LABS: Blood Morphology Comment NOT SEEN (NOT SEEN)
--- NOTE | 2024-09-26 04:29 | ER ---
Nurse's Notes [facility] Name: Jazzmine Amin Age: 49 yrs Sex: Female : 1975 Arrival Date: 09/26/2024 Time: 01:17 Bed 14 Private MD: Lalo Goel V Diagnosis: Infectious gastroenteritis and colitis, unspecified;Dehydration;Muscle weakness (generalized) Presentation: 09/26 01:43 Chief complaint: Patient states: nausea, vomiting, and diarrhea that started at 2100. cp4 Coronavirus screen: Client denies travel out of the [place] in the last 14 days. At this time, the client does not indicate any symptoms associated with coronavirus-19. Ebola Screen: Patient negative for fever greater than or equal to 101.5 degrees Fahrenheit, and additional compatible Ebola Virus Disease symptoms Patient denies exposure to infectious person. Patient denies travel to an Ebola-affected area in the 21 days before illness onset. No symptoms or risks identified at this time. Initial Sepsis Screen: Does the patient meet any 2 criteria? HR > 90 bpm. No. Patient's initial sepsis screen is negative. Does the patient have a suspected source of infection? No. Patient's initial sepsis screen is negative. Risk Assessment: Do you want to hurt yourself or someone else? Patient reports no desire to harm self or others. Onset of symptoms was September 25, 2024 at 21:00. 01:43 Method Of Arrival: Ambulatory 4 01:43 Acuity: SANTO 3 cp4 Triage Assessment: 01:44 General: Appears in no apparent distress. uncomfortable, Behavior is calm, cooperative, cp4 appropriate for age. Pain: Complains of pain in abdomen. GI: Reports diarrhea, nausea, vomiting. 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 - Infectious Disease History:: Denies. - Family history:: not pertinent. - Social history:: Smoking status: Patient denies any tobacco usage or history of. - Hospitalizations: : No recent hospitalization is reported. Screenin:54 [facility] ED Fall Risk Assessment (Adult) History of falling in the last 3 months, lg3 including since admission No falls in past 3 months (0 pts) Confusion or Disorientation No (0 pts) Intoxicated or Sedated No (0 pts) Impaired Gait No (0 pts) Mobility Assist Device Used No (0 pt) Altered Elimination No (0 pt) Score/Fall Risk Level 0 - 2 = Low Risk Oriented to surroundings, Maintained a safe environment, Educated pt \T\ family on fall prevention, incl call for assistance when getting out of bed, Assessed \T\ reinforced patient's understanding of fall precautions. Abuse screen: Denies threats or abuse. Denies injuries from another. Nutritional screening: No deficits noted. Tuberculosis screening: No symptoms or risk factors identified. Assessment: 01:54 General: Appears in no apparent distress. uncomfortable, Behavior is calm, cooperative. lg3 Pain: Complains of pain in left lower quadrant Pain currently is 7 out of 10 on a pain scale. Neuro: No deficits noted. Ruiz Agitation-Sedation Scale (RASS): 0 - Alert and Calm Level of Consciousness is awake, alert, obeys commands, Oriented to person, place, time, situation. Cardiovascular: No deficits noted. Denies chest pain, shortness of breath, Capillary refill < 3 seconds. Respiratory: No deficits noted. Airway is patent Respiratory effort is even, unlabored, Respiratory pattern is regular, symmetrical. GI: Abdomen is round non-distended, obese, Bowel sounds present X 4 quads. Abd is soft and non tender X 4 quads. Reports lower abdominal pain, cramping, diarrhea, nausea, vomiting. : No signs and/or symptoms were reported regarding the genitourinary system. EENT: No deficits noted. No signs and/or symptoms were reported regarding the EENT system. Derm: No deficits noted. No signs and/or symptoms reported regarding the dermatologic system. Skin is intact, is healthy with good turgor, Skin is dry, Skin is normal, Skin temperature is warm. Musculoskeletal: No deficits noted. No signs and/or symptoms reported regarding the musculoskeletal system. Circulation, motion, and sensation intact. Range of motion: intact in all extremities. 02:26 Reassessment: Patient appears in no apparent distress at this time. No changes from lg3 previously documented assessment. Patient and/or family updated on plan of care and expected duration. Pain level reassessed. Patient is alert, oriented x 3, equal unlabored respirations, skin warm/dry/pink. Patient states feeling better. Patient states symptoms have improved. 03:51 Reassessment: Patient appears in no apparent distress at this time. No changes from lg3 previously documented assessment. Patient and/or family updated on plan of care and expected duration. Pain level reassessed. Patient is alert, oriented x 3, equal unlabored respirations, skin warm/dry/pink. Vital Signs: 01:43 BP 135 / 87; Pulse 92; Resp 18; Temp 98.7; Pulse Ox 97% ; Weight 136.08 kg; Height 5 lg3 ft. 1 in. ; Pain 7/10; 02:25 BP 112 / 71; Pulse 90; Resp 16 S; Pulse Ox 97% on R/A; lg3 03:51 BP 142 / 67; Pulse 86; Resp 16 S; Pulse Ox 99% on R/A; lg3 01:43 Body Mass Index 56.68 (136.08 kg, 154.94 cm) lg3 01:43 Pain Scale: Adult lg3 ED Course: 01:22 Patient arrived in ED. gm2 01:22 Lalo Goel MD is Private Physician. gm2 01:23 Edmond Phan MD is Attending Physician. rn 01:37 Mary Grace Gandara RN is Primary Nurse. lg3 01:44 Triage completed. cp4 01:44 Arm band placed on right wrist. Patient placed in waiting room. cp4 01:54 Patient has correct armband on for positive identification. Placed in gown. Bed in low lg3 position. Call light in reach. Side rails up X 1. Client placed on continuous cardiac and pulse oximetry monitoring. NIBP monitoring applied. Door closed. Noise minimized. Warm blanket given. Pillow given. 01:54 Initial lab(s) drawn, by ED staff, sent to lab. Inserted saline lock: 20 gauge in right lg3 antecubital area, using aseptic technique. Blood collected. Flushed with 10 mL NS. 01:59 CBC with Diff Sent. lg3 01:59 CMP Sent. lg3 01:59 Lipase Sent. lg3 02:52 CT Abd/Pelvis - IV Contrast Only In Process Unspecified. EDMS 04:28 Lalo Goel MD is Hospitalizing Provider. rn 07:00 Report received from MARBELLA Parr. kc6 07:15 No provider procedures requiring assistance completed. Patient admitted, IV remains in kc6 place. Administered Medications: 01:57 Drug: NS 0.9% IV 1000 ml IV at 1 bolus Per protocol; to be given as a bolus over 60 lg3 minutes Route: IV; Rate: 1 bolus; Site: right antecubital; 07:00 Follow up: Response: No adverse reaction; IV Status: Completed infusion; IV Intake: kc6 1000ml 01:59 Drug: Ondansetron IVP 4 mg IVP once; over 2 minutes Route: IVP; Site: right antecubital;lg3 02:25 Follow up: Response: No adverse reaction; Marked relief of symptoms; Nausea is decreasedlg3 01:59 Drug: morphine IVP or IV 4 mg IVP once over 4 mins Route: IVP; Infused Over: 4 mins; lg3 Site: right antecubital; 02:24 Follow up: Response: No adverse reaction; Marked relief of symptoms; Pain is decreased lg3 05:06 Drug: Ciprofloxacin IVPB 400 mg 200 ml IVPB once over 60 mins Volume: 200 ml; Route: cp4 IVPB; Infused Over: 60 mins; Site: right antecubital; 08:13 Follow up: Response: No adverse reaction; IV Status: Infusion continued upon admission; kc6 IV Intake: 200ml 07:23 Drug: metroNIDAZOLE IVPB 500 mg 100 ml IVPB at 200 ml/hr once over 30 mins Volume: 100 kc6 ml; Route: IVPB; Rate: 200 ml/hr; Infused Over: 30 mins; Site: right antecubital; 08:13 Follow up: Response: No adverse reaction; IV Status: Infusion continued upon admission; kc6 IV Intake: 100ml Medication: 01:54 VIS not applicable for this client. lg3 Intake: 07:00 IV: 1000ml; Total: 1000ml. kc6 08:13 IV: 200ml; Total: 1200ml. kc6 08:13 IV: 100ml; Total: 1300ml. kc6 Outcome: 04:28 Decision to Hospitalize by Provider. rn 07:15 Admitted to ER Hold. Please see [facility] for further documentation. kc6 07:15 Condition: good 07:15 Instructed on the need for admit, 12:45 Patient left the ED. rg5 Signatures: Dispatcher [employer] Edmond Washington MD MD rn Able, Lacie, RN RN lg3 Susan Sanchez RN RN kc6 Jenae Hunter cp4 Yvette Ozuna 2 Gabe Weston, RN RN rg5 Corrections: (The following items were deleted from the chart) 02:26 01:43 BP 165 / 117; Pulse 92bpm; Resp 18bpm; Pulse Ox 97%; Temp 98.7F; 136.08 kg; lg3 Height 5 ft. 1 in.; BMI: 56.6; Pain 7/10, Adult; cp4
--- NOTE | 2024-09-26 04:29 | EDPHYS ---
Physician Documentation [facility] Name: Jazzmine Amin Age: 49 yrs Sex: Female : 1975 Arrival Date: 09/26/2024 Time: 01:17 Bed 14 Private MD: Lalo Goel V ED Physician Edmond Phan HPI: 09/26 01:42 This 49 yrs old Female presents to ER via Unassigned with complaints of rn Nausea/Vomiting/Diarrhea, Abdominal Pain. 01:42 Patient reports nausea vomiting and diarrhea along with left-sided abdominal pain that rn began last night. Reports sick contact and they were having identical symptoms recently. No fever or chills. No blood in emesis or stool.. 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 - Infectious Disease History:: Denies. - Family history:: not pertinent. - Social history:: Smoking status: Patient denies any tobacco usage or history of. - Hospitalizations: : No recent hospitalization is reported. ROS: 01:42 Constitutional: Negative for fever, chills, and weight loss, Cardiovascular: Negative rn for chest pain, palpitations, and edema, Respiratory: Negative for shortness of breath, cough, wheezing, and pleuritic chest pain, Abdomen/GI: Positive for abdominal pain with nausea vomiting and diarrhea MS/Extremity: Negative for injury and deformity, Skin: Negative for injury, rash, and discoloration, Neuro: Positive for generalized weakness Exam: 01:42 Constitutional: This is a well developed, well nourished patient who is awake, alert, rn and in no acute distress. ENT: Dry mucous membranes Cardiovascular: Regular rate and rhythm . No pulse deficits. Respiratory: No increased work of breathing, no retractions or nasal flaring. Abdomen/GI: Soft, no focal tenderness or rebound. Vital Signs: 01:43 BP 135 / 87; Pulse 92; Resp 18; Temp 98.7; Pulse Ox 97% ; Weight 136.08 kg; Height 5 lg3 ft. 1 in. ; Pain 7/10; 02:25 BP 112 / 71; Pulse 90; Resp 16 S; Pulse Ox 97% on R/A; lg3 03:51 BP 142 / 67; Pulse 86; Resp 16 S; Pulse Ox 99% on R/A; lg3 01:43 Body Mass Index 56.68 (136.08 kg, 154.94 cm) lg3 01:43 Pain Scale: Adult lg3 MDM: 01:23 Medical Screening Exam initiated rn 04:26 Differential diagnosis: Nonspecific abd pain, gastritis, cholecystitis, pancreatitis, rn appendicitis, diverticulitis, viral gastroenteritis, gastroenteritis. Data reviewed: vital signs, nurses notes, lab test result(s), radiologic studies, CT scan, and as a result, I will admit patient. Consideration of Admission/Observation Patient was admitted/placed on observation. Escalation of care including admission/observation considered. Management of patient was discussed with the following: Hospitalist: Discussed case with hospitalist, will admit for further IV hydration and nausea control. Counseling: I had a detailed discussion with the patient and/or guardian regarding the historical points, exam findings, and any diagnostic results supporting the discharge/admit diagnosis, lab results, radiology results, the need for further work-up and treatment in the hospital. Response to treatment: the patient's symptoms have mildly improved after treatment, and as a result, I will admit patient. ED course: Patient still not feeling well, CT shows moderate enteritis and fluid-filled small intestine. Patient with elevated WBC and bandemia. Will admit with IV antibiotics and fluids.. 09/26 01:24 Order name: CBC with Diff; Complete Time: 02:56 rn 09/26 01:24 Order name: CMP; Complete Time: 02:56 rn 09/26 01:24 Order name: Lipase; Complete Time: 02:56 rn 09/26 01:24 Order name: UA Rfx Devyn Cult if indicated rn 09/26 01:24 Order name: Test, Urine rn 09/26 02:07 Order name: Manual Differential; Complete Time: 02:56 EDMS 09/26 01:24 Order name: CT Abd/Pelvis - IV Contrast Only; Complete Time: 08:19 rn 09/26 01:24 Order name: IV Saline Lock; Complete Time: 01:59 rn 09/26 01:24 Order name: Labs collected and sent; Complete Time: 01:59 rn Administered Medications: 01:57 Drug: NS 0.9% IV 1000 ml IV at 1 bolus Per protocol; to be given as a bolus over 60 lg3 minutes Route: IV; Rate: 1 bolus; Site: right antecubital; 07:00 Follow up: Response: No adverse reaction; IV Status: Completed infusion; IV Intake: kc6 1000ml 01:59 Drug: Ondansetron IVP 4 mg IVP once; over 2 minutes Route: IVP; Site: right antecubital;lg3 02:25 Follow up: Response: No adverse reaction; Marked relief of symptoms; Nausea is decreasedlg3 01:59 Drug: morphine IVP or IV 4 mg IVP once over 4 mins Route: IVP; Infused Over: 4 mins; lg3 Site: right antecubital; 02:24 Follow up: Response: No adverse reaction; Marked relief of symptoms; Pain is decreased lg3 05:06 Drug: Ciprofloxacin IVPB 400 mg 200 ml IVPB once over 60 mins Volume: 200 ml; Route: cp4 IVPB; Infused Over: 60 mins; Site: right antecubital; 08:13 Follow up: Response: No adverse reaction; IV Status: Infusion continued upon admission; kc6 IV Intake: 200ml 07:23 Drug: metroNIDAZOLE IVPB 500 mg 100 ml IVPB at 200 ml/hr once over 30 mins Volume: 100 kc6 ml; Route: IVPB; Rate: 200 ml/hr; Infused Over: 30 mins; Site: right antecubital; 08:13 Follow up: Response: No adverse reaction; IV Status: Infusion continued upon admission; kc6 IV Intake: 100ml Disposition Summary: 09/26/24 04:28 Hospitalization Ordered Notes: Hospitalization Status: Observation rn Provider: Lalo Goel rn Condition: Stable rn Problem: new rn Symptoms: are unchanged rn Bed/Room Type: Standard rn Location: Telemetry/MedSurg (Inpatient)(09/26/24 11:06) [facility] Room Assignment: [facility](09/26/24 11:06) [facility] Diagnosis - Infectious gastroenteritis and colitis, unspecified rn - Dehydration rn - Muscle weakness (generalized) rn Forms: - Medication Reconciliation Form rn - SBAR form rn - Leadership Thank You Letter rn Signatures: Dispatcher [employer] EDEdmond Vo MD MD rn Able, Lacie, RN RN lg3 Chris Crews MD MD sp3 Susan Sanchez, RN RN kc6 Giovanna Armas, RN RN kb3 Isabel Banks bc6 Jenae Hunter cp4 Corrections: (The following items were deleted from the chart) 08:06 04:28 Telemetry/MedSurg (observation) rn kb3 08:06 04:28 rn kb3 11:06 08:06 [facility] ER [facility] kb3 bc6 11:06 08:06 [facility]- kb3 bc6
[2024-09-26] MEDS ORDERED: METRONIDAZOLE 500mg IVPB 500 MG/100 ML BAG IV ONE (04:58)
[2024-09-26] MEDS ORDERED: Ciprofloxacin 200mg IV 400 MG/200 ML IV.SOLN. IV ONE (04:58)
--- NOTE | 2024-09-26 05:13 | RAD REPORT ---
INDICATION: ABD PAIN COMPARISON: CT abdomen pelvis May 2019 TECHNIQUE: Enhanced CT of the abdomen and pelvis performed per protocol. Oral contrast was not administered. Mul tiplanar reconstructions were provided. Dose reduction techniques were utilized for this exam including automated exposure control, adjustmen ts to mA and/or kV according to patient's size, and the use of iterative reconstruction techniques. FINDINGS: LOWER CHEST: Lung bases are clear. LIVER: Enlarged measuring up to 20.5 cm with mild diffuse hepatic steatosis. No focal lesions are see n. SPLEEN: Unremarkable. PANCREAS: Unremarkable. ADRENALS: Unremarkable. KIDNEYS: Unremarkable. GALLBLADDER: Unremarkable. VESSELS: Aortoiliac system normal in course and caliber. BOWEL: Diffusely fluid-filled bowel with scattered air-fluid levels. No bowel obstruction. APPENDIX: Normal. FLUID: No free fluid or abnormal fluid collection. ADENOPATHY: No pathologic adenopathy. BLADDER: Circumferential thickening of the urinary bladder wall. PELVIS: Uterus and adnexa are unremarkable. BONES: No acute bony abnormality. SOFT TISSUES: Small fat-containing umbilical hernia. IMPRESSION: 1. Diffusely fluid-filled bowel with scattered air-fluid levels, compatible with diarrheal illness. 2. Urinary bladder wall thickening. Recommend correlation with urinalysis to evaluate for cystitis. 3. Hepatomegaly with hepatic steatosis. Electronically signed by: Richard Leal DO 09/26/2024 03:[address] [facility] NR Due to temporary technical issues with the PACS/viseto reporting system, reports are being ruby d by the in-house radiologist without review as a courtesy to ensure prompt reporting the interpreting radiologist is fully responsible for the content of the report. Transcribed Date/Time: 09/26/2024 5:12 AM
[2024-09-26] MEDS: NA CHLORIDE 0.9% 1,000 ML IV SCH (07:09)
[2024-09-26] MEDS ORDERED: METRONIDAZOLE 500mg IVPB 500 MG/100 ML BAG IV SCH (09:00)
[2024-09-26] MEDS ORDERED: CIPROFLOXACIN 400mg IV 400 MG/200 ML BAG IV SCH (09:00)
[2024-09-26 09:13] VITALS: BMI 51.5
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
[2024-09-26] MEDS ORDERED: SODIUM CHLORIDE 0.9% 10ML INJ IV PRN (14:28)
[2024-09-26 16:37] LABS: STOOL CONSISTENCY Liquid/Semi-Solid
[2024-09-26] MEDS: METRONIDAZOLE 500mg IVPB 500 MG/100 ML BAG IV SCH (16:59)
[2024-09-26] MEDS: ENOXAPARIN 40 MG/0.4 ML SQ SCH (17:00)
[2024-09-26 17:46] LABS: C.diff Antigen/Toxin Ag neg : Tox neg (NEG : NEG); CDIFF INTERNAL NEG CONTROL White Background (WHITE BKGD)
[2024-09-26] MEDS: PANTOPRAZOLE 40 MG INJ IVP SCH (21:00)
[2024-09-26] MEDS: CIPROFLOXACIN 400mg IV 400 MG/200 ML BAG IV SCH (21:00)
[2024-09-27] MEDS: ACETAMINOPHEN 500 MG TAB PO PRN (05:17)
[2024-09-27 05:57] LABS: Absolute Lymphocytes (CBC) 0.8 K/uL (0.7-4.9); Hematocrit 38.1 % (36.0-45.0); Hemoglobin 13.0 g/dL (12.0-15.0); MCH 29.6 pg (27.0-35.0); MCHC 34.1 g/dL (32.0-36.0); MCV 86.9 fL (80-100); MPV 9.0 fL (7.6-11.3); Nucleated RBC Absolute Count 0.0 (0-0); Nucleated Red Blood Cells % 0.0 % (0-0); RBC Red Blood Cell Count 4.39 M/uL (3.86-4.86); White Blood Count 4.30 thou/uL (4.3-10.9)
[2024-09-27 06:14] LABS: Anion Gap 7.4 mEq/L (5.0-15.0); BUN Blood Urea Nitrogen 9.0 mg/dL (7-18); Glucose Level 125.0 mg/dL (74-106); Potassium 3.4 mEq/L (3.5-5.1)
[2024-09-27] MEDS: Banana Flakes/T-Galactooligos 1 Dose Packet PO SCH (09:00)
[2024-09-27] MEDS: LACTOBACILLUS/ACIDOPHILUS TAB PO SCH (09:04)
[2024-09-27 14:10] VITALS: O2SAT 93
[2024-09-27 16:23] VITALS: BP 159/78; TEMP 98.1
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
[2024-09-27] MEDS: POTASSIUM CL SA 10 MEQ TAB PO ONE (18:03)
== END 2024-09-27 19:10 | disposition home or self-care (01) ==
LOC: ER 01:17 → ERHOLD 04:29 → 4TH 11:56
PROVIDERS: ADMIT Internal Medicine; ATTEND Internal Medicine
DX: K52.9 Noninfective gastroenteritis and colitis, unspecified (principal); E87.6 Hypokalemia; E86.0 Dehydration; M62.81 Muscle weakness (generalized); F90.9 Attention-deficit hyperactivity disorder, unspecified type; G43.909 Migraine, unspecified, not intractable, without status migrainosus; F41.9 Anxiety disorder, unspecified; R10.9 Unspecified abdominal pain; R65.10 Systemic inflammatory response syndrome (SIRS) of non-infectious origin without acute organ dysfunction; D72.829 Elevated white blood cell count, unspecified; R50.9 Fever, unspecified; R16.0 Hepatomegaly, not elsewhere classified; K76.0 Fatty (change of) liver, not elsewhere classified; R55 Syncope and collapse; S02 Fracture of skull and facial bones; E66.01 Morbid (severe) obesity due to excess calories; Z88.8 Allergy status to other drugs, medicaments and biological substances
CPT/HCPCS: 96365; 96361; 85025 ×2; 80048; 36415 ×2; 87324; 83690; 80053; 74177; 96375; 99285; 96366; Q9967; J2470 ×2; J1650 ×2; J0744 ×3; J2405; J7030 ×4; G0378

== ENCOUNTER 2024-11-20 15:46 | Emergency (ER) | payer BC, MEDICARE ==
[2024-11-20] MEDS ORDERED: ALBUTEROL 2.5 MG/3 ML NEB SOL ONE (16:08)
[2024-11-20] MEDS ORDERED: IPRATROPIUM BROM 0.5MG/2.5ML ONE (16:08)
[2024-11-20 16:51] LABS: Influenza A Ag Negative; Influenza B Ag Negative; SARS-CoV-2 Antigen Rapid Res Negative (Negative)
--- NOTE | 2024-11-20 17:06 | RAD REPORT ---
EXAMINATION: ONE VIEW CHEST XR CLINICAL INDICATION: Female, 49 years old.,COUGH TECHNIQUE: Frontal chest projection is submitted. Examination is limited by patient positioning and t echnique. COMPARISON: 02/18/2024 FINDINGS: The lungs are well inflated and clear. Poor penetration somewhat limits evaluation. No pneumothorax o r sizable effusion. The heart is normal in size. Mediastinal contours are unremarkable. IMPRESSION: No acute intrathoracic abnormalities.
--- NOTE | 2024-11-20 17:11 | EDPHYS ---
Physician Documentation [facility] Name: Jazzmine Amin Age: 49 yrs Sex: Female : 1975 Arrival Date: 11/20/2024 Time: 15:46 Bed 9 Private MD: ED Physician Adama Russ HPI: 11/20 17:15 This 49 yrs old Female presents to ER via Ambulatory with complaints of Headache, Flu kb Symptoms. 17:15 Pt is a 49 year old female who presents for cough, congestion, chills, bodyaches and kb headache that started 2 days ago. Denies fever. States the cough is keeping her up at night. Reports posttussive vomiting.. Historical: - Allergies: 16:05 Topamax; iw - PMHx: 16:05 ADD/ADHD; Migraines; Anxiety; Panic attack; iw - PSHx: 16:05 section; iw - Immunization history:: Adult Immunizations not up to date. - Infectious Disease History:: Denies. - Social history:: Smoking status: Patient denies any tobacco usage or history of. ROS: 17:11 Constitutional: As per HPI kb Exam: 17:11 Constitutional: This is a well developed, well nourished patient who is awake, alert, kb and in no acute distress. Head/Face: Normocephalic, atraumatic. ENT: Moist Mucous membranes Cardiovascular: Regular rate Skin: Warm, dry with normal turgor. Normal color. MS/ Extremity: Pulses equal, no cyanosis. Neurovascular intact. Full, normal range of motion. Neuro: Awake and alert, GCS 15, oriented to person, place, time, and situation. 17:13 Respiratory: the patient does not display signs of respiratory distress, Respirations: kb normal, Breath sounds: wheezing: expiratory that is mild, is scattered, Vital Signs: 16:04 BP 139 / 82; Pulse 90; Resp 19; Pulse Ox 96% on R/A; Weight 136.08 kg; Height 5 ft. 5 iw in. ; 16:04 Body Mass Index 49.92 (136.08 kg, 165.1 cm) iw [place] Coma Score: 17:14 Eye Response: spontaneous(4). Motor Response: obeys commands(6). Verbal Response: kb oriented(5). Total: 15. MDM: 15:55 Medical Screening Exam initiated kb 17:13 Data reviewed: vital signs, nurses notes. kb 17:14 Differential diagnosis: uri, bronchitis, pneumonia, flu, covid. I considered the kb following discharge prescriptions or medication management in the emergency department I discussed and recommended Over The Counter medications, Antibiotics: At this time antibiotics are not recommended. Counseling: I had a detailed discussion with the patient and/or guardian regarding the historical points, exam findings, and any diagnostic results supporting the discharge/admit diagnosis, lab results, radiology results, the need for outpatient follow up, a family practitioner, to return to the emergency department if symptoms worsen or persist or if there are any questions or concerns that arise at home. 11/20 16:02 Order name: COVID-19 Ag + Flu A+B Ag; Complete Time: 16:56 kb 11/20 16:02 Order name: Chest Single View XRAY; Complete Time: 17:07 kb Administered Medications: 16:20 Drug: Albuterol Inhalation 2.5 mg Inhalation once Route: Inhalation; jb4 17:31 Follow up: Response: No adverse reaction; Marked relief of symptoms jb4 16:20 Drug: Ipratropium Inhalation Aerosol 0.5 mg Inhalation once Route: Inhalation; jb4 17:31 Follow up: Response: No adverse reaction; Marked relief of symptoms jb4 16:20 Drug: Dexamethasone IM 10 mg IM once Route: IM; Site: left deltoid; jb4 17:31 Follow up: Response: No adverse reaction; Marked relief of symptoms jb4 Disposition: 19:12 I was immediately available on-site in the Emergency Department for consultation in the ms3 care of the patient. Disposition Summary: 11/20/24 17:10 Discharge Ordered Notes: Location: Home kb Condition: Stable kb Diagnosis - Acute bronchitis, unspecified kb Followup: kb - With: Emergency Department - When: As needed - Reason: Worsening of condition Followup: kb - With: Private Physician - When: 2 - 3 days - Reason: Recheck today's complaints, Continuance of care, Re-evaluation by your physician Discharge Instructions: - Discharge Summary Sheet kb - Acute Bronchitis, Adult, [id number] kb Forms: - Medication Reconciliation Form kb - Antibiotic Education kb - Prescription Opioid Use kb - Patient Portal Instructions kb - Leadership Thank You Letter kb Prescriptions: - albuterol sulfate 90 mcg/actuation Inhalation HFA Aerosol Inhaler - inhale 2 puff INHALATION route every 4 to 6 hours as needed for shortness of kb breath or wheezing; 1 Unspecified; Refills: 0, Product Selection Permitted - Prednisone 20 mg Oral Tablet - take 1 tablet ORAL route once daily for 5 days; 5 tablet; Refills: 0, Product kb Selection Permitted - Tessalon Perles 100 mg Oral Capsule - take 1 capsule ORAL route every 8 hours As needed; 15 capsule; Refills: 0, kb Product Selection Permitted Signatures: Dispatcher [employer] Ines Polanco, BAG CUTTER-C BAG CUTTER-Susanna Crouch, RN RN iw Remigio Weinberg RN RN jb4 Adama Russ DO DO ms3
--- NOTE | 2024-11-20 17:11 | ER ---
Nurse's Notes [facility] Name: Jazzmine Amin Age: 49 yrs Sex: Female : 1975 Arrival Date: 11/20/2024 Time: 15:46 Bed 9 Private MD: Diagnosis: Acute bronchitis, unspecified Presentation: 11/20 16:04 Chief complaint: Patient states: cough, congestion, vomiting after cough, chills , body iw aches, X 2 days. Coronavirus screen: Client presents with at least one sign or symptom that may indicate coronavirus-19. Ebola Screen: No symptoms or risks identified at this time. Initial Sepsis Screen: Does the patient meet any 2 criteria? No. Patient's initial sepsis screen is negative. Does the patient have a suspected source of infection? No. Patient's initial sepsis screen is negative. Risk Assessment: Do you want to hurt yourself or someone else? Patient reports no desire to harm self or others. Onset of symptoms was November 18, 2024. 16:04 Method Of Arrival: Ambulatory iw 16:04 Acuity: SANTO 4 iw Historical: - Allergies: 16:05 Topamax; iw - PMHx: 16:05 ADD/ADHD; Migraines; Anxiety; Panic attack; iw - PSHx: 16:05 section; iw - Immunization history:: Adult Immunizations not up to date. - Infectious Disease History:: Denies. - Social history:: Smoking status: Patient denies any tobacco usage or history of. Screenin:18 [facility] ED Fall Risk Assessment (Adult) History of falling in the last 3 months, jb4 including since admission No falls in past 3 months (0 pts) Confusion or Disorientation No (0 pts) Intoxicated or Sedated No (0 pts) Impaired Gait No (0 pts) Mobility Assist Device Used No (0 pt) Altered Elimination No (0 pt) Score/Fall Risk Level 0 - 2 = Low Risk Oriented to surroundings, Maintained a safe environment. Abuse screen: Denies threats or abuse. Nutritional screening: No deficits noted. Tuberculosis screening: No symptoms or risk factors identified. Assessment: 16:18 General: Appears in no apparent distress. comfortable, Behavior is calm, cooperative, jb4 appropriate for age. Pain: Complains of pain in headache Pain does not radiate. Pain currently is 5 out of 10 on a pain scale. Neuro: Level of Consciousness is awake, alert, obeys commands, Oriented to person, place, time, situation. Cardiovascular: Patient's skin is warm and dry. Respiratory: Airway is patent Respiratory effort is even, unlabored, Respiratory pattern is regular, symmetrical. Derm: Skin is intact, Skin is pink, warm \T\ dry. Musculoskeletal: Circulation, motion, and sensation intact. Range of motion: intact in all extremities. 16:54 Reassessment: Patient appears in no apparent distress at this time. Patient and/or jb4 family updated on plan of care and expected duration. Pain level reassessed. Patient is alert, oriented x 3, equal unlabored respirations, skin warm/dry/pink. Vital Signs: 16:04 BP 139 / 82; Pulse 90; Resp 19; Pulse Ox 96% on R/A; Weight 136.08 kg; Height 5 ft. 5 iw in. ; 16:04 Body Mass Index 49.92 (136.08 kg, 165.1 cm) iw [place] Coma Score: 17:14 Eye Response: spontaneous(4). Motor Response: obeys commands(6). Verbal Response: kb oriented(5). Total: 15. ED Course: 15:52 Patient arrived in ED. al6 15:54 [facility]C [facility] kb 15:54 Adama Russ DO is Attending Physician. kb 16:05 Triage completed. iw 16:05 Arm band placed on. iw 16:18 Patient has correct armband on for positive identification. Bed in low position. Call jb4 light in reach. Side rails up X 1. Provided Education on: plan of care. 16:18 No provider procedures requiring assistance completed. Patient did not have IV access jb4 during this emergency room visit. 16:20 COVID-19 Ag + Flu A+B Ag Sent. jb4 16:39 Chest Single View XRAY In Process Unspecified. EDMS 16:53 Remigio Weinberg, RN is Primary Nurse. jb4 Administered Medications: 16:20 Drug: Albuterol Inhalation 2.5 mg Inhalation once Route: Inhalation; jb4 17:31 Follow up: Response: No adverse reaction; Marked relief of symptoms jb4 16:20 Drug: Ipratropium Inhalation Aerosol 0.5 mg Inhalation once Route: Inhalation; jb4 17:31 Follow up: Response: No adverse reaction; Marked relief of symptoms jb4 16:20 Drug: Dexamethasone IM 10 mg IM once Route: IM; Site: left deltoid; jb4 17:31 Follow up: Response: No adverse reaction; Marked relief of symptoms jb4 Medication: 16:18 VIS not applicable for this client. jb4 Outcome: 17:10 Discharge ordered by . pravin 17:31 Discharged to home ambulatory, jb4 17:31 Condition: stable 17:31 Discharge instructions given to patient, Instructed on discharge instructions, follow up and referral plans. medication usage, Demonstrated understanding of instructions, follow-up care, medications, Prescriptions given X 3, 17:32 Patient left the ED. jb4 Signatures: Dispatcher [employer] EDMS Ines Matt, SHOW DESIGN SUPERVISOR-C SHOW DESIGN SUPERVISOR-Susanna Crouch RN RN iw Bryson, James, RN RN jb4 Cinda Dumont6
[2024-11-20 17:56] VITALS: BP 139/82; O2SAT 96
== END 2024-11-20 17:32 | disposition home or self-care (01) ==
LOC: ER 15:46
DX: J20.9 Acute bronchitis, unspecified (principal); R51.9 Headache, unspecified; R05.9 Cough, unspecified; F41.9 Anxiety disorder, unspecified; F90.9 Attention-deficit hyperactivity disorder, unspecified type; Z88.8 Allergy status to other drugs, medicaments and biological substances; Z11.52 Encounter for screening for COVID-19
CPT/HCPCS: 36415; 71045; 96372; 99284; 87428; J7613; J7644; J1100